=== PATIENT | female | born 1945 | race Caucasian/White ===

== ENCOUNTER 2019-09-05 10:59 | Outpatient (CLI) | payer MEDICARE, SELFPAY ==
--- NOTE | 2019-09-05 11:09 | XR_ITS ---
WS: [id number] VIEWS OF THE LEFT HIP TECHNIQUE: 3 views of the left hip CLINICAL INFORMATION: pain FINDINGS: Moderate degenerative arthritis left hip with joint space narrowing. Osteopenia. Hypertrophic changes along the greater trochanter. Normal left pubic rami. No acute fractures. XR/XR hip LT 2-3V wo/w pel* [id number] IMPRESSION: Moderate degenerative arthritis left hip. No acute fractures
== END 2019-09-05 11:00 | disposition home or self-care (01) ==
LOC: RADWPI 11:03
PROVIDERS: Family Provider Family Medicine; PCP Family Medicine; Visit Provider Family Medicine
DX: M16.12 Unilateral primary osteoarthritis, left hip (principal); B37.3 Candidiasis of vulva and vagina; R73.9 Hyperglycemia, unspecified; Z68.25 Body mass index [BMI] 25.0-25.9, adult; F17.211 Nicotine dependence, cigarettes, in remission; Z71.89 Other specified counseling
CPT/HCPCS: 36416; 73502; 82962

== ENCOUNTER 2019-11-02 10:26 | Emergency (ER) | payer MEDICARE, SELFPAY ==
[2019-11-02 10:28] VITALS: BMI 24.4
[2019-11-02 10:33] VITALS: BP 146/104; PULSE 70; RESP 18; TEMP 36.6; O2SAT 99
--- NOTE | 2019-11-02 10:33 | ED_ITS ---
HPI - Fall General: Chief Complaint: Fall Stated Complaint: FALL LEFT RIB PAIN Time Seen by Provider: 11/02/19 10:31 History of Present Illness: HPI Narrative: 74-year-old female presents emergency room she fell in the bathroom mechanical fall lost her balance complaining of left lower rib pain she not strike her head she not lose consciousness she denies any other injury she was ambulatory afterwards she is still splinting her left lower chest wall with her forearm for comfort. She did receive narcotics in route to the ER. Associated symptoms-after fall: Denies abdominal pain or chest pain Review of Systems Const: Denies: fever, chills, body aches, change in appetite, fatigue or malaise ENMT: Denies: throat pain, ear pain, nasal discharge or nasal congestion Card: Denies: chest pain, edema, shortness of breath on exertion or shortness of breath when lying down Resp: Denies: shortness of breath, productive cough or non-productive cough GI: Denies: abdominal pain, nausea, vomiting, vomiting blood, coffee grounds in vomit, diarrhea, constipation, bloating, blood in stool or black tarry stool : Denies: flank pain, difficulty urinating, painful urination, urinary frequency or urinary urgency Skin/Breast: Denies: rash or itching PFSH ED PFSH: Medical History Hypertension e Social History Smoking and tobacco status: former smoker Alcohol intake: never Physical Exam Const: COMMON NORMALS: no apparent distress GENERAL APPEARANCE: cooperative and comfortable ORIENTATION/CONSCIOUSNESS: Yes awake, Yes oriented to person, Yes oriented to place and Yes oriented to time HENMT: COMMON NORMALS: normocephalic, head/scalp atraumatic, hearing grossly normal bilaterally, external ears normal, EAC's normal, TM's normal bilaterally, nasal mucous membranes and turbinates normal, moist oral mucous membranes and oropharynx normal HEAD & SCALP: normocephalic and atraumatic NOSE: nasal mucous membranes and turbinates normal EXTERNAL EAR: Yes external ears normal EXTERNAL AUDITORY CANAL: EAC's normal TYMPANIC MEMBRANE: TM's normal bilaterally Eye: COMMON NORMALS: PERRL, EOMs intact bilaterally, conjunctivae normal and no scleral icterus CONJUNCTIVA: Yes conjunctivae normal PUPIL: Yes PERRL Neck/C-Spine: COMMON NORMALS: full ROM, no lymphadenopathy, supple and no JVD Lymph: LYMPHATIC: no lymphadenopathy noted and no lymphedema noted Chest: OTHER: Left lower ribs tender to palpation no subcutaneous air no obvious deformity of the rib externally. Resp: COMMON NORMALS: normal respiratory effort, no retractions, no use of accessory muscles and clear to auscultation bilaterally AUSCULTATION: clear to auscultation bilaterally Cardio: COMMON NORMALS: no JVD, regular rate, regular rhythm and no murmurs RATE: regular rate RHYTHM: regular rhythm GI: COMMON NORMALS: soft to palpation and no hepatosplenomegaly AUSCULTATION: Yes normoactive bowel sounds PALPATION: Yes soft, No tender, No guarding and Yes no hepatosplenomegaly Extremity: COMMON NORMALS: normal to inspection, normal capillary refill, no clubbing, cyanosis or edema, no calf tenderness and no pedal edema Neuro: SENSORIUM/ORIENTATION: Yes oriented to person, Yes oriented to place and Yes oriented to time Skin: COMMON NORMALS: no rashes or lesions noted GENERAL SKIN EXAM: no rashes or lesions noted Course Vital Signs: Vital signs: Vital Signs Temperature 97.8 F 11/02/19 10:33 Pulse Rate 69 11/02/19 14:34 Respiratory Rate 18 11/02/19 14:34 Blood Pressure 175/83 11/02/19 14:34 Pulse Oximetry 99 11/02/19 14:34 MDM - Fall MDM Narrative: Medical decision making narrative: Reviewed findings with patient discussed anticipated recovery. Narcotics as needed can use other Tylenol but discussed making sure the Tylenol dose does not exceed recommendations reviewed with her. Advised of side effects of medications avoid wearing rib belt can splint with a pillow or blanket against the left side of her rib can use ice as needed follow-up if worsens or changes. Lab Data: Labs: Lab Results 11/02/19 11/02/19 Range/Units 11:15 11:15 WBC 5.8 (4.0-10.0) 10^3/ uL RBC 4.47 (4.1-5.3) 10^6/u L Hgb 13.8 (11.5-15.3) g/dL Hct 43.4 (37.0-47.0) % MCV 97.1 (81-99) fL MCH 30.9 (28.0-34.0) pg MCHC 31.8 (30.0-36.0) g/dL RDW 12.4 (12.1-15.1) % Plt Count 234 (130-400) 10^3/c mm MPV 10.0 (7.4-10.4) fL Neut % (Auto) 68.0 % Lymph % (Auto) 23.0 % [place] % (Auto) 6.1 % Eos % (Auto) 2.1 % Baso % (Auto) 0.5 % Neut # (Auto) 3.9 (1.8-7.7) 10^3/u L Lymph # (Auto) 1.3 (0.8-4.8) 10^3/u L [place] # (Auto) 0.4 (0.2-0.9) 10^3/u L Eos # (Auto) 0.1 (0.0-0.8) 10^3/u L Baso # (Auto) 0.0 (0.0-0.1) 10^3/u L Nucleated RBC % (a uto) 0 % Nucleated RBCs # 0.0 /100WBC Sodium 137 (136-145) mmol/L Potassium 4.3 (3.5-5.1) mmol/L Chloride 98 (98-107) mmol/L Carbon Dioxide 30 H (22-29) mmol/L Anion Gap 13.3 (5-19) BUN 14 (8-23) mg/dL Creatinine 0.9 (0.5-0.9) mg/dL Glucose 152 H (65-115) mg/dL Calculated Osmolal ity 283 L (285-295) mOsm/k g Calcium 9.9 (8.5-10.5) mg/dL Discharge Plan Discharge Patient Disposition: Home, Self-Care Clinical Impression: Left rib fracture Condition: Stable Prescriptions: New hydrocodone-acetaminophen 5-325 mg tablet 1 tab PO Q6H PRN (Reason: pain) Qty: 25 RF: 0 Zofran 4 mg tablet 4 mg PO Q6H PRN (Reason: nausea and vomiting) Qty: 10 RF: 0 No Action lisinopril 10 mg tablet 10 mg PO BID RF: 0 gabapentin 300 mg tablet 300 mg PO TID RF: 0 [id number] Tablet 1 tab PO DAILY RF: 0 Zyrtec 10 mg Tablet 10 mg PO DAILY RF: 0 Discharge Orders: Discharge Order (Routine); Ordered 11/02/19 Ordered By: Giovanni Bang Referrals: Andrea Johansen MD [Primary Care Provider] - Discharge Diet: Usual diet Discharge Activity: Increase activity as tolerated Activity Restrictions/Additional Instructions: Follow-up with your primary care doctor in the next 4 to 5 days. Discharge Date/Time: 11/02/19 14:00 Coding Level of Care Code ED Pin Sticker for Wingg Martha
[2019-11-02 10:40] VITALS: O2SAT 79
--- NOTE | 2019-11-02 10:41 | PC.NURSE ---
Pt sleeping and noted to be 79% on room air after 100mcg Fentanyl per EMS. Pt placed on 3LNC oxygen and saturations up to 100%
[2019-11-02 10:43] VITALS: PULSE 66; RESP 14; O2SAT 100
--- NOTE | 2019-11-02 10:58 | XR_ITS ---
WS: [id number] RIBS LEFT WITH CHEST TECHNIQUE: 3 views of the left ribs with PA chest CLINICAL INFORMATION: fall L rib paini COMPARISON: July 20, 2018 FINDINGS: Moderate chronic emphysematous changes. Normal cardiac silhouette. Aortic calcification. No acute pul monary infiltrates. Left rotator cuff anchor. Thoracic curve convex right. Slightly displaced left lower lobe lateral rib fractures involving the 10th and 11th ribs. XR/XR ribs LT mn 3V w CXR1V [id number] IMPRESSION: 1. Slightly displaced left lower lobe lateral rib fractures involving the left 10th and 11th ribs. 2. Lungs are well aerated.
[2019-11-02 11:27] LABS: Basophils % 0.5 %; Eosinophils # 0.1 10^3/uL (0.0-0.8); Eosinophils % 2.1 %; Hematocrit 43.4 % (37.0-47.0); Hemoglobin 13.8 g/dL (11.5-15.3); Lymphocytes # 1.3 10^3/uL (0.8-4.8); Mean Corpuscular HGB Conc 31.8 g/dL (30.0-36.0); Mean Corpuscular Hemoglobin 30.9 pg (28.0-34.0); Mean Corpuscular Volume 97.1 fL (81-99); Monocytes # 0.4 10^3/uL (0.2-0.9); Monocytes % 6.1 %; Neutrophils # 3.9 10^3/uL (1.8-7.7); Nucleated Red Blood Cells % 0 %; Platelet Count 234 10^3/cmm (130-400); Red Blood Count 4.47 10^6/uL (4.1-5.3); Red Cell Distribution Width 12.4 % (12.1-15.1); White Blood Count 5.8 10^3/uL (4.0-10.0)
[2019-11-02 11:44] LABS: Anion Gap 13.3 (5-19); Blood Urea Nitrogen 14 mg/dL (8-23); Calcium 9.9 mg/dL (8.5-10.5); Carbon Dioxide 30 mmol/L (22-29); Chloride 98 mmol/L (98-107); Glucose 152 mg/dL (65-115); Osmolality Calculated 283 mOsm/kg (285-295); Potassium 4.3 mmol/L (3.5-5.1); Sodium 137 mmol/L (136-145)
[2019-11-02] MEDS: ondansetron 2 mg/ML SDV 2 mL 4 MG IVP (12:36)
[2019-11-02 12:38] VITALS: RESP 18; O2SAT 100
[2019-11-02] MEDS: morphine 4 mg/mL SDV 1 mL IVP ×2 (12:38→13:38)
[2019-11-02 13:38] VITALS: RESP 17; O2SAT 98
[2019-11-02 14:34] VITALS: BP 175/83; PULSE 69; RESP 18; O2SAT 99
== END 2019-11-02 14:00 | disposition home or self-care (01) ==
PROVIDERS: Emergency Provider Family Medicine; Family Provider Family Medicine; PCP Family Medicine
DX: S22.32XA Fracture of one rib, left side, initial encounter for closed fracture (principal); R07.81 Pleurodynia; I10 Essential (primary) hypertension; W01.0XXA Fall on same level from slipping, tripping and stumbling without subsequent striking against object, initial encounter; Z87.891 Personal history of nicotine dependence
CPT/HCPCS: 12345; 36415; 71101; 80048; 85025; 96374; 96375; 96376; 99282; 99283; J2270; J2405

== ENCOUNTER → 2020-08-25 15:37 | Outpatient (BNVA) | payer MEDICARE, SELFPAY | PROVIDERS: Family Provider Family Medicine; PCP Family Medicine; Referring Provider Dermatology; Visit Provider Podiatrist Foot & Ankle Surgery | DX: M79.671 Pain in right foot (principal) | CPT/HCPCS: 73630 ==

== ENCOUNTER → 2021-03-11 12:07 | Outpatient (BNVA) | payer MEDICARE, SELFPAY | PROVIDERS: Family Provider Family Medicine; PCP Family Medicine; Visit Provider Family Medicine | DX: G62.9 Polyneuropathy, unspecified (principal); M54.5 Low back pain; K58.1 Irritable bowel syndrome with constipation | CPT/HCPCS: 81000 ==

== ENCOUNTER → 2021-04-02 09:16 | Outpatient (BNVA) | payer MEDICARE, SELFPAY | PROVIDERS: Family Provider Family Medicine; PCP Family Medicine; Visit Provider Family Medicine | DX: R09.1 Pleurisy (principal); R06.02 Shortness of breath; I70.0 Atherosclerosis of aorta | CPT/HCPCS: 71046 ==

== ENCOUNTER → 2021-12-15 11:25 | Outpatient (BNVA) | payer MEDICARE, SELFPAY | PROVIDERS: Family Provider Family Medicine; PCP Family Medicine; Visit Provider Family Medicine | DX: J30.9 Allergic rhinitis, unspecified (principal); I10 Essential (primary) hypertension; E78.00 Pure hypercholesterolemia, unspecified | CPT/HCPCS: 80053; 80061; 85025 ==

== ENCOUNTER 2022-11-15 09:50 | Outpatient (CLI) | payer MEDICARE, SELFPAY ==
--- NOTE | 2022-11-15 10:21 | XR_ITS ---
WS: [id number] Exam: XR hand RT min 3V* [id number] Date/Time of Exam: 11/15/2022 10:32 AM Reason For Exam: pain across MCP's and PIP joints No acute fracture or dislocation. Moderate degenerative changes in the MP and IP joints. Degenerative change at the articulation of the scaphoid and greater and lesser multangular. No soft tissue foreig n bodies are seen. XR/XR hand RT min 3V* [id number] IMPRESSION: 1. Moderately advanced degenerative changes in the MP and IP joints as noted ab ove. 2. No fracture or dislocation.
== END 2022-11-15 09:51 | disposition home or self-care (01) ==
LOC: RAD 09:58
PROVIDERS: PCP Family Medicine; Visit Provider Family Medicine
DX: M19.049 Primary osteoarthritis, unspecified hand (principal)
CPT/HCPCS: 73130

== ENCOUNTER → 2023-03-01 17:38 | Outpatient (BNVA) | payer MEDICARE, SELFPAY | PROVIDERS: PCP Family Medicine; Visit Provider Emergency Medicine | DX: J01.90 Acute sinusitis, unspecified (principal); U07.1 COVID-19 | CPT/HCPCS: 87426 ==

== ENCOUNTER → 2023-03-07 14:30 | Outpatient (BNVA) | payer MEDICARE, SELFPAY | PROVIDERS: PCP Family Medicine; Visit Provider Family Medicine | DX: Z86.018 Personal history of other benign neoplasm (principal); Z98.890 Other specified postprocedural states; H91.91 Unspecified hearing loss, right ear; Z01.818 Encounter for other preprocedural examination; G62.9 Polyneuropathy, unspecified | CPT/HCPCS: 87426 ==

== ENCOUNTER 2023-05-05 12:48 | Outpatient (CLI) | payer MEDICARE, SELFPAY ==
--- NOTE | 2023-05-05 13:00 | MR_ITS ---
WS: [id number] MRI HEAD WITH CONTRAST TECHNIQUE: Sagittal T1, T2 axial, T2 axial FLAIR, axial susceptibility weighted imaging, axial diffus ion weighted images, and coronal T2 images were obtained. Pre and post-T1 axial and post T1 coronal i mages. ADC and FSPGR images. CLINICAL INFORMATION: progressive symptoms in recent months/surveil schwannoma COMPARISON: CT 2018 and MRI 2013 FINDINGS: RIGHT retromastoid craniotomy with history of RIGHT acoustic schwannoma resection. Postoper ative changes RIGHT cerebellopontine angle and RIGHT RIGHT IAC. No evidence of recurrent RIGHT IAC ma ss. Normal postoperative enhancement RIGHT IAC. LEFT 7th and 8th cranial nerves are normal in appeara nce. Normal trigeminal nerve root entry zones. No evidence of restricted diffusion to suggest acute ischemia. Ventricular system and basilar cistern s are patent. Minimal small vessel changes. No significant parenchymal volume loss. Mild mucosal thic kening in the ethmoid air cells. Mastoid air cells are well aerated. Normal vascular flow voids at th e skull base. IMPRESSION: 1. Postoperative changes RIGHT CP angle with a RIGHT retromastoid craniotomy. No evidence of recurre nt enhancing RIGHT CP angle mass or lesion. 2. Stable postoperative changes RIGHT CP angle. 3. LEFT IAC is normal. 4. No restricted diffusion to suggest acute ischemia. 5. Minimal small vessel changes. No significant parenchymal volume loss. 6. No other suspicious findings.
[2023-05-05] MEDS: gadobenate dimeglumine 20 mL vial IV (14:11)
== END 2023-05-05 12:49 | disposition home or self-care (01) ==
LOC: RAD 12:48
PROVIDERS: PCP Family Medicine; Visit Provider Family Medicine
DX: Z86.018 Personal history of other benign neoplasm (principal); H91.91 Unspecified hearing loss, right ear; Z98.890 Other specified postprocedural states
CPT/HCPCS: 70553; A9577

== ENCOUNTER → 2023-05-26 10:54 | Outpatient (BNVA) | payer MEDICARE, SELFPAY | PROVIDERS: PCP Family Medicine; Visit Provider Nurse Practitioner Family | DX: L57.0 Actinic keratosis (principal); L72.0 Epidermal cyst; D48.5 Neoplasm of uncertain behavior of skin; L57.8 Other skin changes due to chronic exposure to nonionizing radiation; L81.4 Other melanin hyperpigmentation | CPT/HCPCS: 11102; 17000; 99213 ==

== ENCOUNTER → 2023-06-21 10:11 | Outpatient (BNVA) | payer MEDICARE, SELFPAY | PROVIDERS: PCP Family Medicine; Visit Provider Family Medicine | DX: I10 Essential (primary) hypertension (principal); J30.89 Other allergic rhinitis; Z79.899 Other long term (current) drug therapy | CPT/HCPCS: 80053; 85025 ==

== ENCOUNTER → 2023-06-27 08:21 | Outpatient (BNVA) | payer MEDICARE, SELFPAY | PROVIDERS: PCP Family Medicine; Visit Provider Dermatology | DX: C44.529 Squamous cell carcinoma of skin of other part of trunk (principal) | CPT/HCPCS: 13101; 17313 ==

== ENCOUNTER 2024-12-22 14:38 | Emergency (ER) | payer MEDICARE, SELFPAY ==
[2024-12-22 14:41] VITALS: BP 161/95; PULSE 73; RESP 20; TEMP 36.5; O2SAT 97
[2024-12-22 14:58] LABS: Bilirubin Urine Negative (Negative); Blood Urine Negative (Negative); Glucose Urine UA Negative (Normal); Ketones Urine Negative (Negative); Leukocyte Esterase Urine 1+ (Negative); Nitrate Urine Negative (Negative); Protein Urine Negative (Negative); Specific Gravity, Urine 1.011 (1.005-1.030); Urine Appearance Clear (CLEAR); Urine Color Yellow (Yellow); pH Urine 7.5 (5-7)
[2024-12-22 15:03] LABS: Bacteria Urine None Seen /hpf; Hyaline Casts Urine 0-4 /lpf; RBC Urine 0-2 /hpf (0-2); Squamous Epithelial Cell Urine 0-5 /hpf (0-5); WBC Urine 0-5 /hpf (0-5)
[2024-12-22 16:16] VITALS: BP 161/79; PULSE 62; O2SAT 99
[2024-12-22 16:22] LABS: Basophils % 0.4 %; Eosinophils # 0.2 10^3/uL (0.0-0.8); Eosinophils % 4.1 %; Lymphocytes # 1.7 10^3/uL (0.8-4.8); Lymphocytes % 32.3 %; Mean Corpuscular HGB Conc 31.9 g/dL (30-55); Mean Corpuscular Hemoglobin 31.1 pg (27-33); Mean Corpuscular Volume 97.7 fl (85-98); Mean Platelet Volume 9.8 fL (7.4-10.4); Monocytes # 0.4 10^3/uL (0.2-0.9); Monocytes % 7.5 %; Neutrophils # 2.95 10^3/uL (1.8-7.7); Neutrophils % 55.5 %; Nucleated Red Blood Cells % 0 %; Platelet Count 222 10^3/cmm (157-399); Red Cell Distribution Width 11.9 % (12.1-15.1); White Blood Count 5.32 10^3/uL (3.29-11.43)
[2024-12-22 16:44] LABS: Alanine Aminotransferase 18 U/L (0-33); Albumin Level 3.9 g/dL (3.5-5.2); Alkaline Phosphatase 53 U/L (35-105); Anion Gap 13.3 (5-19); Aspartate Amino Transferase 25 U/L (0-32); Blood Urea Nitrogen 17 mg/dL (8-23); Calcium 9.4 mg/dL (8.5-10.5); Carbon Dioxide 29 mmol/L (22-29); Chloride 100 mmol/L (98-107); Creatinine Clr Calc Pharmacy 53.2684; Globulin 3.1 g/dL (1.3-4.6); Glucose 88 mg/dL (65-115); Lipase 30 U/L (13-60); Osmolality Calculated 287 mOsm/kg (285-295); Potassium 4.3 mmol/L (3.5-5.1); Sodium 138 mmol/L (136-145); Total Bilirubin 0.3 mg/dL (0.15-1.2)
--- NOTE | 2024-12-22 16:57 | CTR_ITS ---
PROCEDURE INFORMATION: Exam: CT Abdomen And Pelvis With Contrast Exam date and time: 12/22/2024 5:18 PM Age: 79 years old Clinical indication: Abdominal pain; Prior surgery; Surgery date: 6+ months; Surgery type: Hysto; PT reports right side flank pain for about a week. Denies any urinary symptoms or blood in urine. Denies HX of kidney stones TECHNIQUE: Imaging protocol: Computed tomography of the abdomen and pelvis with contrast. Radiation optimization: All CT scans at this facility use at least one of these dose optimization techniques: automated exposure control; mA and/or kV adjustment per patient size (includes targeted exams where dose is matched to clinical indication); or iterative reconstruction. Contrast material: OMNI 350; Contrast volume: 100 ml; Contrast route: INTRAVENOUS (IV); COMPARISON: CR XR hip LT 2-3V wo/w pel* [id number] 09/05/2019 11:31 AM RADIATION DOSE METRICS: Total DLP (mGy-cm): 428.14 FINDINGS: Lungs: Small noncalcified nodule is seen right lung base at the right diaphragm of 8 mm. No infiltrate or effusion is seen. Liver: Normal. No mass. Gallbladder and biliary ducts: Normal. No calcified stones. No ductal dilation. Pancreas: Normal. No ductal dilation. Spleen: Normal. No splenomegaly. Adrenal glands: Normal. No mass. Kidneys and ureters: Mild parapelvic cyst formation suggested both kidneys, with inability to exclude mild hydronephrosis of both kidneys. No ureteral dilatation or ureterectasis is seen. No renal or ureteral calculus identified. Kidneys are otherwise unremarkable. No perinephric stranding. Stomach and bowel: Unremarkable. No obstruction. No significant mucosal thickening. Mild sigmoid colon diverticulosis without findings of diverticulitis. Moderate stool volume. Appendix: No evidence of appendicitis. Intraperitoneal space: No free fluid or ascites. No free air. Vasculature: [id number] atherosclerotic calcification without abdominal aortic aneurysm. Major vascular structures appear patent. Pelvic phleboliths noted. Lymph nodes: Unremarkable. No enlarged lymph nodes. Urinary bladder: Unremarkable as visualized. Reproductive: Previous hysterectomy. Bones/joints: Postsurgical change with hardware of prior posterior fusion L4-L5 level. Degenerative changes otherwise. Soft tissues: Unremarkable. CT/CT abdomen pelvis w con* [id number] IMPRESSION: 1. Fullness of the collecting structures of both kidneys, with suggestion of predominant component of mild parapelvic cyst formation bilaterally though with inability to exclude mild bilateral hydronephrosis as well. No associated ureterectasis or urinary tract stone. 2. Mild sigmoid colon diverticulosis without diverticulitis. Moderate stool volume. 3. Postsurgical changes of previous hysterectomy and posterior fusion L4-L5 lumbar spine. 4. Small 8 mm noncalcified nodule right lung base at the diaphragm and may arise from the diaphragm. For patients at low risk (minimal or absent history of smoking and of other known risk factors), recommend CT Chest at 6-12 months, then consider CT Chest at 18-24 months. For patients at high risk (history of smoking or of other known risk factors), recommend CT Chest at 6-12 months, then CT Chest at 18-24 months. (Reference: Stephen) References: Stephen Ordoñez, et al. Guidelines for Management of Incidental Pulmonary Nodules Detected on CT Images: From the Fleischner Society 2017. Radiology. 2017;284(1):228-243.
[2024-12-22] MEDS: iohexol 350 mg/mL 500 mL Btl (per mL) IV (17:22)
[2024-12-22 18:43] VITALS: BP 170/83; PULSE 67; O2SAT 100
[2024-12-22 19:24] VITALS: BP 168/93; PULSE 65; RESP 15; O2SAT 98
--- NOTE | 2024-12-22 19:38 | W.ED.ABDPA2 ---
HPI - Abdominal Pain General: Chief Complaint: Abdominal Pain Stated Complaint: back kidney area pain Time Seen by Provider: 12/22/24 15:46 History of Present Illness: 79-year-old female patient presents to the emergency department today with right sided flank pain. Patient states that started today. Patient states it feels like a kidney stone but patient states she has not had a kidney stone. Patient denies any fever. Patient denies any abdominal pain. Patient denies any chest pain or shortness of breath. Patient denies any other urinary symptoms. Related Data Home Medications ?Medication ?Instructions ?Recorded ?Confirmed fcmhsiwlepoe-fcfunynj-cbpfsk tablet 1 tab PO DAILY 09/05/19 08/02/24 Previous Rx's ?Medication ?Instructions ?Recorded cetirizine 10 mg capsule (Zyrtec) 10 mg PO DAILY PRN allergy 11/07/23 symptoms #90 caps lisinopril 20 1 tab PO DAILY 90 days #90 tabs 06/25/24 mg-hydrochlorothiazide 12.5 mg tablet azithromycin 250 mg tablet See Rx Instructions PO .COMPLEX #6 08/02/24 tabs pseudoephedrine HCl 60 mg tablet 60 mg PO Q6H PRN nasal congestion 08/02/24 #20 tabs gabapentin 300 mg capsule See Rx Instructions .Route 12/19/24 .COMPLEX #270 caps Allergies Allergy/AdvReac Type Severity Reaction Status Date / Time promethazine Allergy Mild ADR-Headach Verified 08/02/24 09:01 e adhesive Allergy ALGY-Rash Verified 08/02/24 09:01 clarithromycin (From Biaxin) Allergy na Verified 08/02/24 09:01 doxycycline Allergy Unknown Verified 12/22/24 14:47 losartan Allergy itching Verified 08/02/24 09:01 metoclopramide (From Reglan) Allergy na Verified 08/02/24 09:01 metoprolol Allergy nausea Verified 08/02/24 09:01 naproxen Allergy NAUSEA Verified 08/02/24 09:01 oxycodone Allergy itching Verified 08/02/24 09:01 and vomiting prednisolone Allergy Unknown Verified 12/22/24 14:48 triamcinolone Allergy ALGY-Bliste Verified 08/02/24 09:01 r walnut Allergy Unknown Verified 12/22/24 14:47 Review of Systems General: Reports: 10 or more systems reviewed and unremarkable except in HPI and below PFSH ED PFSH: Medical History Irritable colon syndrome Hypercholesteremia GERD (gastroesophageal reflux disease) Brain cancer Multiple fractures of ribs of left side Hypertension e Surgical History History of total hysterectomy History of back surgery History of brain surgery Social History Smoking and tobacco/nicotine status: never used tobacco/nicotine Alcohol intake: never Substance/Drug Use: never Physical Exam Const: COMMON NORMALS: no acute distress GENERAL APPEARANCE: cooperative NUTRITIONAL APPEARANCE: overweight HENMT: COMMON NORMALS: Normal external nose present FACE & SINUS: sinus tenderness NOSE: Normal external nose present Resp: EFFORT & INSPECTION: No respiratory distress AUSCULTATION: diminished lung sounds Cardio: COMMON NORMALS: regular rate and regular rhythm RATE: regular rate RHYTHM: regular rhythm GI: COMMON NORMALS: Normal to inspection, nondistended, normoactive bowel sounds present, Soft to palpation and non-tender PALPATION: Yes Soft to palpation : COMMON NORMALS: Yes no CVA tenderness BLADDER/KIDNEY EXAM: Yes no CVA tenderness Back/Pelvis: COMMON NORMALS: no CVA tenderness, thoracic and lumbar spine normal to inspection, no thoracic nor lumbar tenderness and thoraco-lumbar ROM normal Psych: ATTITUDE: Yes calm and Yes engaged ACTIVITY/MOTOR BEHAVIOR: Yes appropriate eye contact INSIGHT: Good insight present (Psych) JUDGEMENT: Good judgement present (Psych) Course Vital Signs: Vital signs: Vital Signs Temperature 97.7 F 12/22/24 14:41 Pulse Rate 65 12/22/24 19:24 Respiratory Rate 15 12/22/24 19:24 Blood Pressure 168/93 12/22/24 19:24 Pulse Oximetry 98 12/22/24 19:24 Oxygen Delivery Me thod Room Air 12/22/24 14:41 MDM - Abdominal Pain Medical Decision Making Patient is well-appearing nontoxic and in no acute distress. Patient did not want anything for pain. Patient's vital signs are stable. Patient does not have any evidence of hypoxemia. 79-year-old female patient presents to the emergency department today with right sided flank pain. Patient states that started today. Patient states it feels like a kidney stone but patient states she has not had a kidney stone. Patient denies any fever. Patient denies any abdominal pain. Patient denies any chest pain or shortness of breath. Patient denies any other urinary symptoms. There are no acute concerning findings on CT however given the mild parapelvic cyst formation I will have patient follow-up with her primary care physician as well as the noncalcified nodule in the right lung base recommending CT chest at 6 to 12 months patient states she already has follow-up scheduled her primary care physician on Tuesday. Patient was advised of home care instructions as well as return precautions. Patient's urine was without evidence of infection labs are otherwise nonconcerning. Patient will continue to see her physician as discussed on Tuesday return precautions advised. I did discuss this case with Dr. Crandall. Lab Data 12/22/24 16:09 12/22/24 16:09 Labs/Radiology: Radiology Impressions Abdomen/Pelvis CT 12/22/24 16:57 IMPRESSION: 1. Fullness of the collecting structures of both kidneys, with suggestion of predominant component of mild parapelvic cyst formation bilaterally though with inability to exclude mild bilateral hydronephrosis as well. No associated ureterectasis or urinary tract stone. 2. Mild sigmoid colon diverticulosis without diverticulitis. Moderate stool volume. 3. Postsurgical changes of previous hysterectomy and posterior fusion L4-L5 lumbar spine. 4. Small 8 mm noncalcified nodule right lung base at the diaphragm and may arise from the diaphragm. For patients at low risk (minimal or absent history of smoking and of other known risk factors), recommend CT Chest at 6-12 months, then consider CT Chest at 18-24 months. For patients at high risk (history of smoking or of other known risk factors), recommend CT Chest at 6-12 months, then CT Chest at 18-24 months. (Reference: Stephen) References: Stephen Ordoñez, et al. Guidelines for Management of Incidental Pulmonary Nodules Detected on CT Images: From the Fleischner Society 2017. Radiology. 2017;284(1):228-243. Laboratory Results WBC 5.32 10^3/uL (3.29-11.43) 12/22/24 16:09 RBC 4.40 10^6/uL (3.85-5.65) 12/22/24 16:09 Hgb 13.70 g/dL (11.27-16.99) 12/22/24 16:09 Hct 43.0 % (36-47) 12/22/24 16:09 MCV 97.7 fl (85-98) 12/22/24 16:09 MCH 31.1 pg (27-33) 12/22/24 16:09 MCHC 31.9 g/dL (30-55) 12/22/24 16:09 RDW 11.9 % (12.1-15.1) L 12/22/24 16:09 Plt Count 222 10^3/cmm (157-399) 12/22/24 16:09 MPV 9.8 fL (7.4-10.4) 12/22/24 16:09 Neut % (Auto) 55.5 % 12/22/24 16:09 Lymph % (Auto) 32.3 % 12/22/24 16:09 [place] % (Auto) 7.5 % 12/22/24 16:09 Eos % (Auto) 4.1 % 12/22/24 16:09 Baso % (Auto) 0.4 % 12/22/24 16:09 Neut # (Auto) 2.95 10^3/uL (1.8-7.7) 12/22/24 16:09 Lymph # (Auto) 1.7 10^3/uL (0.8-4.8) 12/22/24 16:09 [place] # (Auto) 0.4 10^3/uL (0.2-0.9) 12/22/24 16:09 Eos # (Auto) 0.2 10^3/uL (0.0-0.8) 12/22/24 16:09 Baso # (Auto) 0.0 10^3/uL (0.0-0.1) 12/22/24 16:09 Nucleated RBC % (auto) 0 % 12/22/24 16:09 Nucleated RBCs # 0.0 /100WBC 12/22/24 16:09 Sodium 138 mmol/L (136-145) 12/22/24 16:09 Potassium 4.3 mmol/L (3.5-5.1) 12/22/24 16:09 Chloride 100 mmol/L (98-107) 12/22/24 16:09 Carbon Dioxide 29 mmol/L (22-29) 12/22/24 16:09 Anion Gap 13.3 (5-19) 12/22/24 16:09 BUN 17 mg/dL (8-23) 12/22/24 16:09 Creatinine 0.7 mg/dL (0.5-0.9) 12/22/24 16:09 GFR Calculation Not Reportable 12/22/24 16:09 Glucose 88 mg/dL (65-115) 12/22/24 16:09 Calculated Osmolality 287 mOsm/kg (285-295) 12/22/24 16:09 Calcium 9.4 mg/dL (8.5-10.5) 12/22/24 16:09 Total Bilirubin 0.3 mg/dL (0.15-1.2) 12/22/24 16:09 AST 25 U/L (0-32) 12/22/24 16:09 ALT 18 U/L (0-33) 12/22/24 16:09 Alkaline Phosphatase 53 U/L (35-105) 12/22/24 16:09 Total Protein 7.0 g/dL (6.6-8.7) 12/22/24 16:09 Albumin 3.9 g/dL (3.5-5.2) 12/22/24 16:09 Globulin 3.1 g/dL (1.3-4.6) 12/22/24 16:09 Lipase 30 U/L (13-60) 12/22/24 16:09 Urine Color Yellow (Yellow) 12/22/24 14:50 Urine Appearance Clear (CLEAR) 12/22/24 14:50 Urine pH 7.5 (5-7) 12/22/24 14:50 Ur Specific [place] 1.011 (1.005-1.030) 12/22/24 14:50 Urine Protein Negative (Negative) 12/22/24 14:50 Urine Glucose (UA) Negative (Normal) 12/22/24 14:50 Urine Ketones Negative (Negative) 12/22/24 14:50 Urine Blood Negative (Negative) 12/22/24 14:50 Urine Nitrate Negative (Negative) 12/22/24 14:50 Urine Bilirubin Negative (Negative) 12/22/24 14:50 Urine Urobilinogen 1.0 mg/dL (Negative) 12/22/24 14:50 Ur Leukocyte Esterase 1+ (Negative) A 12/22/24 14:50 Urine RBC 0-2 /hpf (0-2) 12/22/24 14:50 Urine WBC 0-5 /hpf (0-5) 12/22/24 14:50 Ur Squamous Epith Cells 0-5 /hpf (0-5) 12/22/24 14:50 Amorphous Sediment Not Reportable 12/22/24 14:50 Urine Bacteria None seen /hpf (NONE) 12/22/24 14:50 Hyaline Casts 0-4 /lpf H 12/22/24 14:50 All radiology interpretation(s) finalized by discharge Discharge Plan Discharge Patient Disposition: Home Clinical Impression: Acute flank pain Condition: Stable Prescriptions: No Action [id number]-jpvolfmc-yhuklu Tablet 1 tab PO DAILY Zyrtec 10 mg capsule 10 mg PO DAILY PRN (Reason: allergy symptoms) Qty: 90 1RF azithromycin 250 mg tablet See Rx Instructions PO .COMPLEX Qty: 6 0RF Rx Instructions: For 250 mg dose pack: take 500 mg today (day 1), then 250 mg for 4 days (days 2-5) PO pseudoephedrine HCl 60 mg tablet 60 mg PO Q6H PRN (Reason: nasal congestion) Qty: 20 0RF lisinopril-hydrochlorothiazide 20-12.5 mg tablet 1 tab PO DAILY 90 Days Qty: 90 3RF gabapentin 300 mg capsule See Rx Instructions .ROUTE .COMPLEX Qty: 270 1RF Dose Instruction: TAKE 1 CAPSULE BY MOUTH THREE TIMES DAILY Rx Instructions: TAKE 1 CAPSULE BY MOUTH THREE TIMES DAILY Discharge Orders: Discharge ED (Routine); Ordered 12/22/24 Ordered By: Milagros Bhakta Referrals: Andrea Johansen MD [Primary Care Provider, [facility]] - 12/24/24 Discharge Diet: Advance as tolerated Discharge Activity: Resume usual activity Patient Instructions: Flank Pain (ED), Opioid Safety, Pain Management Activity Restrictions/Additional Instructions: Please keep your follow up as scheduled on tuesday. Ct chest in 6 months Return to ER with any worsening if symptoms or concerns Print Language: Lao Coding Level of Care Code ED Radio Division Officer for Yousuf Thomas
== END 2024-12-22 19:54 | disposition home or self-care (01) ==
PROVIDERS: Emergency Medicine; Emergency Provider Registered Nurse; PCP Family Medicine
DX: R10.9 Unspecified abdominal pain (principal); I10 Essential (primary) hypertension; Z85.841 Personal history of malignant neoplasm of brain
CPT/HCPCS: 36415; 74177; 80053; 81001; 83690; 85025; 99285

== ENCOUNTER → 2025-01-10 09:40 | Outpatient (BNVA) | payer MEDICARE, SELFPAY | PROVIDERS: PCP Family Medicine; Visit Provider Podiatrist Foot & Ankle Surgery | DX: M72.2 Plantar fascial fibromatosis (principal); M77.32 Calcaneal spur, left foot | CPT/HCPCS: 73630; 99203 ==

== ENCOUNTER → 2025-02-13 09:33 | Outpatient (BNVA) | payer MEDICARE, SELFPAY | PROVIDERS: PCP Family Medicine; Visit Provider Podiatrist Foot & Ankle Surgery | DX: M72.2 Plantar fascial fibromatosis (principal) | CPT/HCPCS: 99213 ==

== ENCOUNTER → 2025-04-02 11:13 | Outpatient (BNVA) | payer MEDICARE, SELFPAY | PROVIDERS: PCP Family Medicine; Visit Provider Podiatrist Foot & Ankle Surgery | DX: M72.2 Plantar fascial fibromatosis (principal); M77.32 Calcaneal spur, left foot | CPT/HCPCS: 20550; J9999 ==

== ENCOUNTER → 2025-05-02 07:35 | Outpatient (BNVA) | payer MEDICARE, SELFPAY | PROVIDERS: PCP Family Medicine; Visit Provider Podiatrist Foot & Ankle Surgery | DX: M72.2 Plantar fascial fibromatosis (principal) | CPT/HCPCS: 99214 ==

== ENCOUNTER 2025-05-29 09:36 | Outpatient (RCR) | payer MEDICARE, SELFPAY | END 2025-06-23 23:59 | disposition home or self-care (01) | LOC: SPT 09:36 | PROVIDERS: Visit Provider Podiatrist Foot & Ankle Surgery | DX: M72.2 Plantar fascial fibromatosis (principal) | CPT/HCPCS: 97035; 97140; 97161; 97530 ==

== ENCOUNTER 2025-06-24 06:30 | Outpatient (RCR) | payer MEDICARE, SELFPAY | END 2025-06-26 11:02 | disposition home or self-care (01) | LOC: SPT 06:30 | PROVIDERS: Visit Provider Podiatrist Foot & Ankle Surgery | DX: M72.2 Plantar fascial fibromatosis (principal) | CPT/HCPCS: 97035; 97140 ==

== ENCOUNTER → 2025-06-27 08:59 | Outpatient (BNVA) | payer MEDICARE, SELFPAY | PROVIDERS: Visit Provider Podiatrist Foot & Ankle Surgery | DX: M72.2 Plantar fascial fibromatosis (principal) | CPT/HCPCS: 99213 ==

== ENCOUNTER 2025-06-28 18:17 | Emergency (ER) | payer MEDICARE, SELFPAY ==
--- OUTSIDE RECORDS SUMMARY | 2025-06-28 18:24 | XMS_ITS | Continuity of Care Document ---
Author Organization [facility] Belinda, Selene, [facility] ([facility]) Address [address] [place] [address] Care Team Providers Care Accounting Machine Servicer Name Role Phone MORENA BYERS Primary Care Provider [facility] NEUROLOGY Neurologist [phone] Assessment No assessment recorded. Plan of Treatment Reminders Order Date Submit Date Provider Last Modified By Organization Details Last Modified Time Details Appointments None record ed. Lab None record ed. Referral None record ed. Procedures None record ed. Surgeries None record ed. Imaging None record ed. Medication Orders None record ed. Patient TargetsNo targets recorded. Patient InstructionsNo instructions recorded. Reason for Referral None Reported. Problems Name Problem SNOMED Code Status Onset Date Resolution Date Notes Provider Name and Address Organization Details Recorded Time Iron deficiency anemia 61650005 Active [address] [facility] Dementia 72400451 Active [address] [facility] 13:[facility]14 Instabilit y of joint of right knee 4151676639878 102 Active [address] [facility] 13:38:13 Arthritis of spine 438230446 Active [address] [facility] 13:38[facility]14 Knee joint valgus deformity 240456355 Active 2022 Janeth nevarez, [facility] 5 13:38:14 Recurrent labyrinthi tis 769072406 Active 2022 Janeth nevarez, [facility] 5 13:38:13 Moderate recurrent major depression 60237817 Active 2022 Janeth nevarez, [facility] 5 13:38:13 Rupture of medial collateral ligament of knee 586620638 Active 2022 Janeth Solomone [facility] 5 13:38:14 Pain of right knee joint 4416086202173 00 Active 2022 Janethann Aguilar [facility] 5 13:38:14 Chronic diarrhea 871604544 Active 2022 Janethann Aguilar [facility] 5 13:38:14 Unsteady when walking 41176358 Active 2023 Janethann Aguilar [facility] 5 13:38:13 Abnormal vaginal bleeding 438830702 Active 2023 Janeth Aguilar [facility] 5 13:38:14 Fatigue 61122215 Active [address] [facility], [facility] 5 13:38:14 Acute on chronic systolic heart failure 685782155 Active 2023 Janeth Aguilar [facility] 5 13:38:14 Systolic murmur 19745388 Active [address] [facility] 13:38:14 Dysphagia 86969707 Active 2024 Janeth nevarez, [facility] 13:38:14 Essential tremor 818405447 Active 2024 Morena Byers, [address], [address] [place] [address] , [facility] 12:00:52 Sundowning 670028696 Active 2024 Morenamarisol Byers[address] , [facility] 12:00:53 Acute urinary tract infection 960343608 Active 2024 Morenamarisol Byers[address] , [facility] 11:40:35 Urinary incontinen ce 253753310 Active 2024 Morenamarisol Byers[address] , [facility] 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 18:33:38 Ischemic stroke 621798348 Active 2024 Morena Byers[address] , [facility] 18:33:40 Post-disch arge follow-up 520339542 Active 2024 MALOU nevarez, [facility] 5 13:46:06 Cerebral infarction 424733808 Active 2024 MALOU nevarez, [facility] 5 13:46:06 Parkinsoni sm 33367134 Active 2024 MALOU nevarez, [facility] 5 13:46:07 Atrial flutter 6360116 Active 2024 MALOU nevarez, [facility] 5 13:46:10 Alzheimer' s disease 88220906 Active 2024 MALOU nevarez, [facility] 5 13:46:11 Gastroesop hageal reflux disease without esophagiti s 873921437 Active 2024 MALOU nevarez, [facility] 13:46:13 Problem Notes None recorded. Procedures Surgical History Date Name Laterality Status Provider Name and Address Organization Details Recorded Time 04/13/20 24 Cerumen Removal-Irrigati on completed [address], [address] 04/15/2024 16:22:05 Hysterectomy [address]YLE [address] [facility] 11/13/2023 14:22:09 Imaging Results None recorded. Procedure Notes None recorded. Medical Equipment None Reported. Allergies Allergen ID Allergen Name Allergen Category Reaction Reaction Severity Criticality Documentation Date Start Date Code Code System Note Provider Name and Address Organization Details Recorded Time 87228 haloperid ol medicatio n Not available Not available Not available 06/12/20252024 5093 RxNorm Not Available rayo - External Data Service - prod 08:18:22 Medications Name Sig Start Date Stop Date Status Note LastModified by Organization Details LastModified Time citalopra m 40 mg tablet TAKE 1 TABLET BY MOUTH EVERY DAY FOR mood 04/02 completed Not Available Not Available Not Available morphine concentra te 100 mg/5 mL (20 mg/mL) oral solution ADMINIST ER 0.25-1 ML UNDER THE TONGUE EVERY HOUR NEEDED FOR PAIN OR SHORTNES S OF BREATH active Not Available Not Available No t Available citalopra m 10 mg tablet TAKE 1 TABLET BY MOUTH EVERY DAY 01/27 completed Not Available Not Available Not Available cephalexi n 250 mg capsule take 1 capsule BY MOUTH EVERY DAY FOR UTI 02/27 completed Not Available Not Available Not Available donepezil 10 mg tablet TAKE 1 TABLET BY MOUTH EVERY DAY active Not Available Not Available No t Available ondansetr on HCl 4 mg tablet TAKE 1 TABLET BY MOUTH EVERY 4 HOURS NEEDED active Not Available Not Available No t Available olanzapin e 5 mg tablet TAKE 1 TABLET BY MOUTH AT BEDTIME 02/27 completed Not Available Not Available Not Available cephalexi n 125 mg/5 mL oral suspensio n take 5ml BY MOUTH EVERY DAY discard remainde r AFTER 10 DAYS 01/07 completed Not Available Not Available Not Available metronida zole 500 mg tablet TAKE 1 TABLET BY MOUTH TWICE DAILY 02/27 completed Not Available Not Available Not Available melatonin 3 mg tablet Take 1 tablet(s ) every day by oral route at bedtime. 2024 active Not Available Not Available Not Avai lable ciproflox acin 500 mg tablet TAKE 1 TABLET BY MOUTH EVERY TWELVE HOURS FOR FIVE DAYS 10/05 completed Not Available Not Available Not Available sulfameth oxazole 800 mg-trimet hoprim 160 mg tablet TAKE 1 TABLET BY MOUTH EVERY TWELVE HOURS FOR 5 DAYS 01/07 completed Not Available Not Available Not Available olanzapin e 7.5 mg tablet Take 1 tablet every day by oral route at bedtime. 03/20 completed Not Available Not Available Not Available vancomyci n 125 mg capsule Take 1 capsule 4 times a day by oral route for 10 days, for infectio n. 03/17 completed Not Available Not Available Not Available meloxicam 7.5 mg tablet TAKE 1 TABLET BY MOUTH EVERY DAY active Not Available Not Available No t Available ceftriaxo ne 1 gram solution for injection Take 1 g by injectio n route. 2024 active Not Available Not Available Not Avai lable alprazola m 0.25 mg tablet Take 1 tablet(s ) 3 times a day by oral route as needed. 06/05 completed Not Available Not Available Not Available citalopra m 20 mg tablet TAKE 1 TABLET BY MOUTH EVERY DAY FOR depressi on 04/02 completed Not Available Not Available Not Available ziprasido ne 20 mg capsule TAKE 1 CAPSULE BY MOUTH TWICE DAILY FOR DEMENTIA WITH AGITATIO N active Not Available Not Available No t Available lorazepam 0.5 mg tablet Take 1 tablet twice a day by oral route for 30 days. 2024 active Not Available Not Available Not Avai lable trazodone 100 mg tablet TAKE 1 TABLET BY MOUTH AT BEDTIME active Not Available Not Available No t Available meclizine 25 mg tablet Take 1 tablet 3 times a day by oral route as needed for 30 days. 11/02 completed Not Available Not Available Not Available cephalexi n 500 mg capsule take 1 capsule BY MOUTH EVERY DAY in THE morning FOR uti 10/05 completed Not Available Not Available Not Available nystatin 100,000 unit/gram topical cream APPLY TO THE AFFECTED AREA(S) by topical route TWICE DAILY 02/27 completed Not Available Not Available Not Available lansopraz ole 30 mg capsule,d elayed release TAKE 1 CAPSULE BY MOUTH EVERY DAY FOR STOMACH active Not Available Not Available No t Available carbidopa 10 mg-levodo pa 100 mg tablet take 1/2 tablet BY MOUTH THREE TIMES DAILY 11/02 completed Not Available Not Available Not Available cephalexi n 500 mg tablet Take 1 tablet 3 times a day by oral route in the morning for 7 days, for UTI. 12/06 completed Not Available Not Available Not Available furosemid e 20 mg tablet TAKE 1 TABLET BY MOUTH EVERY DAY FOR weight gain > THREE pounds active Not Available Not Available No t Available levofloxa fabrice 500 mg tablet TAKE 1 TABLET BY MOUTH EVERY DAY 01/27 completed Not Available Not Available Not Available estradiol 0.01% (0.1 mg/gram) vaginal cream insert ONE gram vaginall y twice weekly DIRECTED active Not Available Not Available No t Available carbidopa 25 mg-levodo pa 100 mg tablet TAKE 1 TABLET BY MOUTH EVERY DAY 2024 active Not Available Not Available Not Avai lable atropine 1 % eye drops ADMINIST ER 2-4 DROPS UNDER THE TONGUE EVERY HOUR NEEDED FOR EXCESS SECRETIO NS active Not Available Not Available No t Available cefdinir 300 mg capsule take 1 capsule BY MOUTH TWICE DAILY FOR 5 DAYS active Not Available Not Available No t Available fluticaso ne propionat e 50 mcg/actua tion nasal spray,ari pension instill TWO SPRAYS EVERY DAY by intranas al route active Not Available Not Available No t Available lorazepam 2 mg/mL oral concentra te ADMINIST ER 0.25-1 ML UNDER THE TONGUE EVERY HOUR NEEDED FOR ANXIETY OR RESTLESS NESS active Not Available Not Available No t Available risperido ne 0.5 mg tablet TAKE 1 TABLET BY MOUTH TWICE DAILY active Not Available Not Available No t Available amoxicill in 875 mg-potass ium clavulana te 125 mg tablet TAKE 1 TABLET BY MOUTH EVERY TWELVE HOURS FOR SEVEN DAYS 01/07 completed Not Available Not Available Not Available olanzapin e 5 mg disintegr ating tablet dissolve ONE & ONE-HALF tablets in MOUTH AT BEDTIME 03/20 completed Not Available Not Available Not Available nitrofura ntoin monohydra te/macroc rystals 100 mg capsule take 1 capsule BY MOUTH EVERY TWELVE HOURS FOR 7 DAYS 10/05 completed Not Available Not Available Not Available meclizine TID/PRN for spinning and nausea 11/02 completed Recorded 06/14/20 12:36PM by Maisha Pearson, Office Visit; Refill Quantity : 24; Tablet; Not Available Not Available Not Available lansopraz ole daily 11/02 completed DM/sd; 32063; Recorded 06/14/20 12:36PM by Maisha Pearson (Authori gume through Morena Byers DO), Office Visit; Refill Quantity : 90; Tablet; Not Available Not Available Not Available donepezil daily 11/02 completed 97764; Recorded 06/14/20 12:36PM by Maisha Pearson (Claudine dunaway through HANNAH Boyd, Office Visit; Refill Quantity : 0; Not Available Not Available Not Available multivita min active Not Available Not Available Not Available fluticaso ne propion-s almeterol 11/02 completed 0; Recorded 06/14/20 12:36PM by Maisha Pearson, Office Visit; Not Available Not Available Not Available Calcium 500 + D (D3) active Not Available Not Available Not Available Trimo-Roger Jelly 0.025 %-0.01 % vaginal insert ONE gram vaginall y twice weekly active Not Available Not Available No t Available Gayla Allergy 180 mg tablet Take 1 tablet every day by oral route. active Not Available Not Available No t Available Rexulti 1 mg tablet Take by oral route for 30 days. active Not Available Not Available No t Available Vitals None Recorded Social History Question Answer Notes LastModified by Organizat ion Details LastModified Time Tobacco Smoking Status Never Smoker LYLE nevarez [facility] 11/13/2023 14:21:39 What Was The Date Of Your Most Recent Tobacco Screening? 01/07/2025 outs Information not available 01/07/2025 Sex: Unknown Functional Status Question Answer Note LastModified by Organizat ion Details LastModified Time Do you use any illicit or recreational drugs? No [email or web address] Information not available 01/27/2023 Do you or have you ever used any other forms of tobacco or nicotine? No [email or web address] Information not available 01/27/2023 What is your level of alcohol consumption? None [email or web address] Information not available 01/27/2023 Mental Status None recorded. Family History Nothing Reported. Medical History No medical history recorded. Gynecological HistoryNo gynecological history recorded. Obstetrics History GPAL:G 0 P 0 0 0 0 Immunizations Vaccine Type Date Status Note Provider Nam e and Address Organization Details Recorded Time COVID-19 vaccine, vector-nr, rS-Ad26, PF, 0.5 mL 10/30/[address] [facility] 01/03/2024 15:39:32 Past Encounters Encounter ID Performer Location Encounter Start Date Encounter Closed Date Diagnosis/Indication Diagnosis SNOMED-CT Code Diagnosis ICD10 Code Diagnosis IMO Codes Diagnosis Note [id number] Stefan Harper DO [facility] ([facility]) [address] [place] [address] 05/20/2025 14:21:41 05/22/2025 08:03:07 Alzheimer's disease 76000289 F02.80 G30.9 088976 Atrial flutter 4981717 I 48.92 [id number] [facility] [id number] Stefan Harper DO [facility] ([facility]) [address] [place] [address] 06/13/2025 09:15:12 06/16/2025 14:03:59 Health Concerns Section Related Observation LastModified by Organization Detai ls LastModified Time None Recorded Concern Status LastModified by Organization Details LastModified Time None Recorded Payers Encounter Date Sequence Insurance Name Policy Number Policy Liu Covered Member ID Liu Member ID Guarantor Name 06/13/2025 1 [place] Isabellajoselin Gorman [id number] Isabellajoselin Gorman 06/13/2025 2 [employer] - PLAN F (MEDICARE SUPPLEMENT) Isabella Gorman [id number] Isabella Gorman OBGyn Episode No OBEpisode recorded.
--- OUTSIDE RECORDS SUMMARY | 2025-06-28 18:24 | XMS_ITS | Encounter Summary ---
Author Organization [facility] Address [address] [place] [address] Care Team Providers Care Marketing Assistant Retail Division Name Role Phone Unavailable Primary Care Provider Unavailabl e Encounter Details Date Type Department Care Team (Latest Contact Info) Description 04/05/2003 Outpatient Historical [facility] Neurosurgery- [place] [address] [address] [place] [address] Tate Paul MD [address] [place] [address] CERV SPONDYL W MYELOPATH (Primary Dx) Social History Tobacco Use Types Packs/Day Years Used Date Smoking Tobacco: Never Assessed Comments Unknown Sex and Gender Information Value Date Recorded Sex Assigned at Not on file 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
--- OUTSIDE RECORDS SUMMARY | 2025-06-28 18:24 | XMS_ITS | Continuity of Care Document ---
Author Organization [facility] Lewis Jasso [facility] Selene Trevino, [facility] ([facility]) Address [address] [place] [address] Care Team Providers Care Utility Worker [place] Name Role Phone BYERSMORENA Primary Care Provider [facility] NEUROLOGY Neurologist Assessment No assessment recorded. Plan of Treatment Reminders Order Date Submit Date Provider Last Modified By Organization Details Last Modified Time Details Appointments None record ed. Lab None record ed. Referral None record ed. Procedures None record ed. Surgeries None record ed. Imaging None record ed. Medication Orders None record ed. Patient TargetsNo targets recorded. Patient Instructions Encounter Date Encounter Id Patient Instructions Last Modified By Organization Details Last Modified Time 04/15/2025 [id number] Discussed with daughter medications, history and goals of care. Daughter does report she is more anxious and frequently tearful. Will d/c donepezil, trazodone, lasix and probiotic. Will start zoloft and pepcid. [email or web address] Not available 04/15/2025 15:45:34 Reason for Referral None Reported. Results Created Date Observation Date Name Description Value Unit Range Abnormal Flag Note LastModifiedBy Organization Detail LastModifiedTime 03/20/2003/20/2025 XR, chest , 2 view No observ ation record ed. RAYO [facility] ([facility]) [address] [place], [address], 03/21/2025 07:57:39 03/22/20 25 03/20/2025 XR, chest , 2 view No observ ation record ed. [address] [place], [address], 04/01/2025 18:23:02 Result Notes None recorded. Problems Name Problem SNOMED Code Status Onset Date Resolution Date Notes Provider Name and Address Organization Details Recorded Time Iron deficiency anemia 96058367 Active 2022 Janeth nevarez [facility] 5 13:38:14 Dementia 52218997 Active 2022 Janethann Aguilar [facility] 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 5 13:38:13 Arthritis of spine 226494394 Active 2022 Janeth Aguilar [facility] 5 13:38:14 Knee joint valgus deformity 881737623 Active 2022 Janethann Solomone [facility] 5 13:38:14 Recurrent labyrinthi tis 235251344 Active 2022 Janethann Aguilar [facility] 5 13:38:13 Moderate recurrent major depression 84687642 Active 2022 Janethann Aguilar [facility] 5 13:38:13 Rupture of medial collateral ligament of knee 617485574 Active 2022 Janetheden Solomone [facility] 5 13:38:14 Pain of right knee joint 3556918212633 00 Active 2022 Janeth Aguilar [facility] 5 13:38:14 Chronic diarrhea 977720550 Active 2022 Janeth nevarez, [facility] 5 13:38:14 Unsteady when walking 00127554 Active 2023 Janeth Aguilar null, [facility] 5 13:38:13 Abnormal vaginal bleeding 209776974 Active 2023 Janeth nevarez, [facility] 5 13:38:14 Fatigue 54785793 Active 2023 Janeth Solomone null, [facility] 5 13:38:14 Acute on chronic systolic heart failure 566881248 Active 2023 Janeth Aguilar null, [facility] 5 13:38:14 Systolic murmur 33185520 Active 2023 Janeth Solomone null, [facility] 5 13:38:14 Dysphagia 40075846 Active 2024 Janeth Jeff nevarez, [facility] 5 13:38:14 Essential tremor 929854535 Active 2024 Morena Byers DO [address] [place] [address], [address] , [facility] 5 12:00:52 Sundowning 090355004 Active 2024 More[address] By[address], [address] , [facility] 5 12:00:53 Acute urinary tract infection 709901741 Active 2024 Morena Byers DO [address] [place] [address], [address] , [facility] 11:40:35 Urinary incontinen ce 849681408 Active [address], [address] , [facility] 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 18:33:38 Ischemic stroke 508937667 Active [address], [address] , [facility] 18:33:40 Post-disch arge follow-up 436002108 Active 2024 MALOU nevarez, [facility] 13:46:06 Cerebral infarction 497726508 Active 2024 MALOU nevarez, [facility] 13:46:06 Parkinsoni sm 50536572 Active 2024 MALOU nevarez, [facility] 13:46:07 Atrial flutter 2546173 Active 2024 MALOU nevarez, [facility] 5 13:46:10 Alzheimer' s disease 74521694 Active 2024 MALOU nevarez, [facility] 13:46:11 Gastroesop hageal reflux disease without esophagiti s 915898609 Active 2024 MALOU nevarez [facility] 13:46:13 Problem Notes None recorded. Procedures Surgical History Date Name Laterality Status Provider Name and Address Organization Details Recorded Time 04/13/20 24 Cerumen Removal-Irrigati on completed AMALIA GODFREYSKYE [address] [place], [address], [place] [facility], Selene 04/15/2024 16:22:05 Hysterectomy completed LYLE BARRIGA [facility], [place] 11/13/2023 14:22:09 Imaging Results None recorded. Procedure Notes None recorded. Medical Equipment None Reported. Allergies Allergen ID Allergen Name Allergen Category Reaction Reaction Severity Criticality Documentation Date Start Date Code Code System Note Provider Name and Address Organization Details Recorded Time 30411 haloperid ol medicatio n Not available Not [...] Available lansopraz ole daily 11/02 completed DM/sd; 82560; Recorded 06/14/20 12:36PM by Maisha Pearson (Authori zed through Morena Byers DO), Office Visit; Refill Quantity : 90; Tablet; Not Available Not Available Not Available donepezil daily 11/02 completed 44216; Recorded 06/14/20 12:36PM by Maisha Pearson (Authori zed through Morena Byers DO), Office Visit; Refill Quantity : 0; Not [...] Available Not Available No t Available Vitals Date Recorded Body height Heart rate Respiratory rate Body temperature Oxygen saturation Systolic And Diastolic Provider Name and Address Organization Details Last Updated DateTime 5 157.48 cm 66 /min 20 /min 97.8 [degF] 96 % 132/74 mm[Hg] MALOU ROTHMAN [facility] 15:38:41 Social History Question Answer Notes LastModified by Organizat ion Details LastModified Time Tobacco Smoking Status Never Smoker LYLE BARRIGA geri [facility] 11/13/2023 14:21:39 What Was The Date Of Your Most Recent Tobacco Screening? 01/07/2025 [email or web address] Information not available 01/07/2025 Sex: Unknown Functional Status Question Answer Note LastModified by Organizat ion Details LastModified Time Do you use any illicit or recreational drugs? No [email or web address] Information not available 01/27/2023 Do you or have you ever used any other forms of tobacco or nicotine? No [email or web address] Information not available 01/27/2023 What is your level of alcohol consumption? None Information not available 01/27/2023 Mental Status None recorded. Family History Nothing Reported. Medical History No medical history recorded. Gynecological HistoryNo gynecological history recorded. Obstetrics History GPAL:G 0 P 0 0 0 0 Immunizations Vaccine Type Date Status Note Provider Nam e and Address Organization Details Recorded Time COVID-19 vaccine, vector-nr, rS-Ad26, PF, 0.5 mL 10/30/2020 completed Janeth nevarez [facility] 01/03/2024 15:39:32 Past Encounters Encounter ID Performer Location Encounter Start Date Encounter Closed Date Diagnosis/Indication Diagnosis SNOMED-CT Code Diagnosis ICD10 Code Diagnosis IMO Codes Diagnosis Note [id number] Morena Byers DO [facility] ([facility]) [address] [place] [address] 03/20/2025 15:20:51 03/25/2025 13:36:34 Essential tremor 959490207 G25.0 increase carbidopa/ levadopa to BID. counseled Dyspnea 385100918 R06.00 02519521 CXR today. Moderate r ecurrent major depression 30796711 F32.A Continue Citalopram 40mg daily. Dementia 61455844 G30.9 F03.90 stable. continue meds. conitnue with care and supervison at home. 105427953 F05 3717847 continue zyprexa, now every evening. counseled Unsteady when walking 22 869435 R26.89 Continue use of walker and w/c. Difficulty sleeping 3013 65284 G47.9 03/20/25: Counseled stop Olanzapine , start Rexulti. Counseled on diagnosis, treatment options including medication s and possible side effects. Start pack dispensed in clinic this afternoon. Recurrent urinary tract infection 225772095 N39.0 546029 03/20/25: presumed, similar symptoms when she was + for infection previously , will treat with Rocephin injection. 09/04/24: counseled continue Macrobid until complete, ok to start Cephalexin 500mg each am. Counseled on diagnosis, treatment options including medication s and possible side effects. [id number] Morena Byers DO [facility] ([facility]) [address] [place] [address] 04/01/2025 17:04:22 04/03/2025 09:45:47 Ischemic stroke 197070376 I63.9 136595 presumed with sudden change in mental status and change in mood/behav ior. right side now more week than left. This does not appear to be medication related as she has been off her meds for 3+ days without change.She is unable to bath, cook, clean, and now she needs assistance with feeding. We will work on NH placement Primary de generative dementia of the Alzheimer type, senile onset 839711652 G30.1 F02.C11 8978363023 we will stop zyprexa and star [id number] Stefan Harper DO [facility] ([facility]) [address] [place] [address] 04/11/2025 12:13:48 04/17/2025 08:01:40 Post-discharge follow-up 844160058 Z09 694110 Cerebral infarction 4325 30848 I63.9 37924258 Parkinsonism 02638838 G2 0.C 68440248 Atrial flutter 5226812 I 48.92 90626762 Alzheimer's disease 2692 9004 G30.9 F02.80 486973 Gastroesop hageal reflux disease without esophagitis 169123875 K21.9 6522457 [id number] Stefan Harper DO [facility] ([facility]) [address] [place] [address] 04/15/2025 09:38:45 04/17/2025 11:17:27 Alzheimer's disease 55620757 F02.80 G30.9 279147 Moderate r ecurrent major depression 83853387 F32.A Atrial flutter 7928965 I 48.92 44957854 Essential tremor 1783077 09 G25.0 88462 Health Concerns Section Related Observation LastModified by Organization Detai ls LastModified Time None Recorded Concern Status LastModified by Organization Details LastModified Time None Recorded Payers Encounter Date Sequence Insurance Name Policy Number Policy Liu Covered Member ID Liu Member ID Guarantor Name 04/15/2025 1 [place] Isabella Gorman [id number] Isabella Gorman 04/15/2025 2 [employer] - PLAN F (MEDICARE SUPPLEMENT) Isabella Gorman [id number] Isabella Gorman Notes Date Note Type Note Provider Name and Address Organization Details Recorded Time 04/15/2025 text/html DementiaReported by PatientHPIFor quality, patient reportsshort term memory loss,inability to learn or remember new information,disorienta tion to place, anddisorientation to time. For severity, patient reportsmoderate. For duration, patient reports___ years.ROS as noted in the HPI discuss care and goals with daughter. Stefan Harper DO [address] [place] [address], [address], MICHELLE Jasso [facility] Selene Trevino 04/16/2025 15:36:35 OBGyn Episode No OBEpisode recorded.
--- OUTSIDE RECORDS SUMMARY | 2025-06-28 18:24 | XMS_ITS | Encounter Summary ---
Author Organization [employer] [facility] [facility] Address [address] [place] [address] Care Team Providers Care Ramp Lead Name Role Phone Unavailable Primary Care Provider Unavailabl e Encounter Details Date Type Department Care Team (Latest Contact Info) Description 08/08/2002 Outpatient Historical [facility] Rafita, Macho Ochoa MD [address] [facility] [address] [place] [address] ABDOMINAL PAIN LUQ (Primary Dx) Social History Tobacco Use Types Packs/Day Years Used Date Smoking Tobacco: Never Assessed Comments Unknown Sex and Gender Information Value Date Recorded Sex Assigned at Not on file 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
--- OUTSIDE RECORDS SUMMARY | 2025-06-28 18:25 | XMS_ITS | Encounter Summary ---
Author Organization [employer] [facility] Address [address] [place] [address] Care Team Providers Care Soda Maker Name Role Phone Unavailable Primary Care Provider Unavailabl e Encounter Details Date Type Department Care Team (Latest Contact Info) Description 08/22/2002 Outpatient Historical HIS [facility] Rafita, Macho Ochoa MD [address] [address] SURGERY FOLLOWUP, UNSPEC (Primary Dx) Social History Tobacco Use Types Packs/Day Years Used Date Smoking Tobacco: Never Assessed Comments Unknown Sex and Gender Information Value Date Recorded Sex Assigned at Not on file 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
--- OUTSIDE RECORDS SUMMARY | 2025-06-28 18:25 | XMS_ITS | Continuity of Care Document ---
Author Organization [facility] Belinda, Selnee, [facility] ([facility]) Address [address] [facility] [place] [address] Care Team Providers Care Founder President And Ceo Name Role Phone MORENA BYERS Primary Care Provider [facility] NEUROLOGY Neurologist Assessment No assessment recorded. Plan [...] Modified By Organization Details Last Modified Time 05/02/2025 [id number] Discussed with daughter, agree to stop zoloft and start zyprexa 5mg daily. Not available 05/02/2025 13:37:21 Reason for Referral None Reported. Problems Name Problem SNOMED Code Status Onset Date Resolution Date Notes Provider Name and Address Organization Details Recorded Time Iron deficiency anemia 89735337 Active 2022 [facility] 13:38:14 Dementia 88026481 Active 2022 [facility] 13:38:14 Instabilit y of joint of right knee 3576824275504 102 Active 2022 [facility] 13:38:13 Arthritis of spine 184928561 Active 2022 Janeth nevarez, [facility] 5 13:38:14 Knee joint valgus deformity 828652087 Active 2022 Janeth Aguilar [facility] 5 13:38:14 Recurrent labyrinthi tis 230258414 Active 2022 Janethann Aguilar [facility], [facility] 5 13:38:13 Moderate recurrent major depression 71242187 Active 2022 Janeth Aguilar [facility] 5 13:38:13 Rupture of medial collateral ligament of knee 232427883 Active 2022 Janetheden Solomone [facility] 5 13:38:14 Pain of right knee joint 3837318946379 00 Active 2022 Janethann Aguilar [facility] 5 13:38:14 Chronic diarrhea 492011851 Active 2022 Janetheden Solomone [facility] 5 13:38:14 Unsteady when walking 64658165 Active 2023 Ajnetheden Solomone [facility] 5 13:38:13 Abnormal vaginal bleeding 081562850 Active 2023 Janetheden Solomone [facility] 5 13:38:14 Fatigue 20953509 Active 2023 Janeth Aguilar [facility] 5 13:38:14 Acute on chronic systolic heart failure 695124785 Active 2023 Janeth Aguilar [facility], [facility] 13:38:14 Systolic murmur 77729292 Active 2023 Janeth Aguilar geri, [facility] 13:38:14 Dysphagia 88962518 Active 2024 Janeth nevarez, [facility] 13:38:14 Essential tremor 060006605 Active 2024 Morena Byers, [address], [address] , [facility] 12:00:52 Sundowning 197155699 Active 2024 Morena Byers [address], [address] , [facility] 12:00:53 Acute urinary tract infection 375660360 Active 2024 Morena Byers [address], [address] , [facility] 11:40:35 Urinary incontinen ce 963362336 Active 2024 Morena Byers [address], [address] , [facility] 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 18:33:38 Ischemic stroke 908865374 Active 2024 Morena Byers [address], [address] , [facility] 5 18:33:40 Post-disch arge follow-up 539685232 Active 2024 MALOU nevarez, [facility] 13:46:06 Cerebral infarction 298866681 Active 2024 MALOU nevarez, [facility] 13:46:06 Parkinsoni sm 46842459 Active 2024 MALOU nevarez, [facility] 5 13:46:07 Atrial flutter 0184887 Active 2024 MALOU nevarez, [facility] 13:46:10 Alzheimer' s disease 30260218 Active 2024 MALOU nevarez, [facility] 13:46:11 Gastroesop hageal reflux disease without esophagiti s 158162070 [facility] 13:46:13 Problem Notes None recorded. Procedures Surgical History Date Name Laterality Status Provider Name and Address Organization Details Recorded Time 04/13/20 24 Cerumen Removal-Irrigati on completed MONI AKINS[address], [address], [facility] 04/15/2024 16:22:05 Hysterectomy completed LYLE BARRIGA [facility] 11/13/2023 14:22:09 Imaging Results None recorded. Procedure Notes None recorded. Medical Equipment None Reported. Allergies Allergen ID Allergen Name Allergen Category Reaction Reaction Severity Criticality Documentation Date Start Date Code Code System Note Provider Name and Address Organization Details Recorded Time 00011 haloperid ol medicatio n Not available Not [...] Available lansopraz ole daily 11/02 completed DM/sd; 47471; Recorded 06/14/20 12:36PM by Maisha Pearson (Authori gume through Morena Byers DO), Office Visit; Refill Quantity : 90; Tablet; Not Available Not Available Not Available donepezil daily 11/02 completed 90702; Recorded 06/14/20 12:36PM by Maisha Pearson (Claudine dunaway through Morena Byers DO), Office Visit; Refill [...] and Address Organization Details Last Updated DateTime 157.48 cm 75 /min 18 /min 98.3 [degF] 98 % 134/62 mm[Hg] MALOU ROTHMAN [facility] 13:35:38 Social History Question Answer Notes LastModified by [employer] Details LastModified Time Tobacco Smoking Status Never Smoker [facility] 11/13/2023 14:21:39 What Was The Date Of Your Most Recent Tobacco Screening? 01/07/2025 [email or web address] Information not available 01/07/2025 Sex: Unknown Functional Status Question Answer Note LastModified by [employer] Details LastModified Time Do you use any illicit or recreational drugs? No [email or web address] Information not available 01/27/2023 Do you or have you ever used any other forms of tobacco or nicotine? No [email or web address] Information not available 01/27/2023 What is your level of alcohol consumption? None [email or web address] Information not available 01/27/2023 Mental Status None recorded. Family History Nothing Reported. Medical History No medical history recorded. Gynecological HistoryNo gynecological history recorded. Obstetrics History GPAL:G 0 P 0 0 0 0 Immunizations Vaccine Type Date Status Note Provider Nam e and Address Organization Details Recorded Time COVID-19 vaccine, vector-nr, rS-Ad26, PF, 0.5 mL 10/30/2020 completed Janeth nevarez [facility], Sel[place] 01/03/2024 15:39:32 Past Encounters Encounter ID Performer Location Encounter Start Date Encounter Closed Date Diagnosis/Indication Diagnosis SNOMED-CT Code Diagnosis ICD10 Code Diagnosis IMO Codes Diagnosis Note [id number] Stefan Harper DO [facility] ([facility]) [address] [place] [address] 5 04/11/2025 12:13:48 04/17/2025 08:01:40 Post-discharge follow-up 231939374 Z09 816315 Cerebral infarction 4325 74551 I63.9 25759554 Parkinsonism 37810476 G2 0.C 63237406 Atrial flutter 6917984 I 48.92 27923928 Alzheimer's disease 2692 9004 G30.9 F02.80 412044 Gastroesop hageal reflux disease without esophagitis 209081851 K21.9 5928825 [id number] Stefan Harper DO [facility] ([facility]) [address] [place] [address] 5 04/15/2025 09:38:45 04/17/2025 11:17:27 Alzheimer's disease 00100986 F02.80 G30.9 899570 Moderate r ecurrent major depression 16407167 F32.A Atrial flutter 2169140 I 48.92 11376937 Essential tremor 3872159 09 G25.0 61616 [id number] Stefan Harper DO [facility] ([facility]) [address] [place] [address] 5 04/25/2025 12:51:26 04/30/2025 08:37:42 Alzheimer's disease 44360123 F02.80 G30.9 828562 Atrial flutter 1195959 I 48.92 24594586 Moderate r ecurrent major depression 43064397 F32.A [id number] Stefan Harper DO [facility] ([facility]) [address] [place] [address] 05/02/2025 13:21:29 05/07/2025 12:24:36 Moderate recurrent major depression 73397597 F32.A Alzheimer's disease 2692 9004 F02.80 G30.9 466279 Health Concerns Section Related Observation LastModified by Organization Detai ls LastModified Time None Recorded Concern Status LastModified by Organization Details LastModified Time None Recorded Payers Encounter Date Sequence Insurance Name Policy Number Policy Liu Covered Member ID Liu Member ID Guarantor Name 05/02/2025 1 [place] Isabella Gorman [id number] Isabella Gorman 05/02/2025 2 [employer] - PLAN F (MEDICARE SUPPLEMENT) Isabella Gorman [id number] Isabella Gorman Notes Date Note Type Note Provider Name and Address Organization Details Recorded Time 05/02/2025 text/html DementiaReported by PatientHPIFor quality, patient reportsshort term memory loss,inability to learn or remember new information,disorienta tion to place, anddisorientation to time. For severity, patient reportsmoderate. For duration, patient reports___ years.ROS as noted in the HPI staff reports pt yelling out. Stefan Harper DO [address] [place] [address], [phone], [facility] 05/05/2025 17:26:08 OBGyn Episode No OBEpisode recorded.
--- OUTSIDE RECORDS SUMMARY | 2025-06-28 18:25 | XMS_ITS | Data Portability ---
Author Organization [facility], [facility] Address [address] [place] [address] Care Team Providers Care Dredgemaster Name Role Phone MORENA BYERS Primary Care Provider [facility] NEUROLOGY Neurologist Assessment No assessment recorded. Plan [...] Modified By Organization Details Last Modified Time 04/25/2025 [id number] Encouraged to give zoloft time, scheduled to increase on 04/30. [email or web address] Not available 04/25/2025 13:14:37 05/02/2025 [id number] Discussed with daughter, agree to stop zoloft and start zyprexa 5mg daily. [email or web address] Not available 05/02/2025 13:37:21 05/20/2025 [id number] continues to yel l out with zyprexa. Will increase to 5mg bid. if not improved by next week increase to 10 [email or web address] Not available 05/20/2025 15:22:19 Reason for Referral None Reported. Problems Name Problem SNOMED Code Status Onset Date Resolution Date Notes Provider Name and Address Organization Details Recorded Time Iron deficiency anemia 56459411 Active 2022 Janeth nevarez [facility], [facility] 13:38:14 Dementia 56201012 Active 2022 Janeth nevarez [facility] 5 13:38:14 Instabilit y of joint of right knee 4903428135008 102 [facility] 13:38:13 Arthritis of spine 885034108 Active 2022 Janethann Aguilar [facility] 5 13:38:14 Knee joint valgus deformity 321289107 Active 2022 Janethann Solomone [facility] 5 13:38:14 Recurrent labyrinthi tis 209307112 Active 2022 Janethann Aguilar [facility] 5 13:38:13 Moderate recurrent major depression 68624451 Active 2022 Janethann Aguilar [facility] 5 13:38:13 Rupture of medial collateral ligament of knee 906530736 Active 2022 Janethann Aguilar [facility] 5 13:38:14 Pain of right knee joint 9634028536594 00 Active 2022 Janethann Aguilar [facility] 5 13:38:14 Chronic diarrhea 620245984 Active 2022 Janethann Solomone [facility] 5 13:38:14 Unsteady when walking 72164421 Active 2023 Janethann Solomone [facility] 5 13:38:13 Abnormal vaginal bleeding 506219717 Active 2023 Janetheden Solomone [facility] 5 13:38:14 Fatigue 73498914 Active 2023 Janeth nevarez, [facility] 5 13:38:14 Acute on chronic systolic heart failure 728075461 Active 2023 Janeth nevarez, [facility] 5 13:38:14 Systolic murmur 76131041 Active 2023 Janeth Solomone null, [facility] 5 13:38:14 Dysphagia 93785965 Active 2024 Janeth Aguilar geri, [facility] 5 13:38:14 Essential tremor 161790522 Active 2024 Morena Byers [address] , [facility] 12:00:52 Sundowning 053173580 Active [address], [address] , [facility] 12:00:53 Acute urinary tract infection 948695206 Active 2024 Morena Byers [address] , [facility] 5 11:40:35 Urinary incontinen ce 028985743 Active 2024 [place] [address] , [facility] 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 13:46:06 Cerebral infarction 178688516 Active 2024 MALOU nevarez, [facility] 13:46:06 Parkinsoni sm 85296939 Active 2024 MALOU nevarez, [facility] 13:46:07 Atrial flutter 6983401 Active 2024 MALOU nevarez, [facility] 13:46:10 Alzheimer' s disease 76894803 Active 2024 MALOU nevarez, [facility] 13:46:11 Gastroesop hageal reflux disease without esophagiti s 057069882 Active 2024 MALOU nevarez [facility] 13:46:13 Problem Notes None recorded. Procedures Surgical History Date Name Laterality Status Provider Name and Address Organization Details Recorded Time 04/13/20 24 Cerumen Removal-Irrigati on completed SKYE AKINS [address] [place], [address], [facility], [facility] 04/15/2024 16:22:05 Hysterectomy completed [facility] 11/13/2023 14:22:09 Imaging Results None recorded. Procedure Notes None recorded. Medical Equipment None Reported. Allergies Allergen ID Allergen Name Allergen Category Reaction Reaction Severity Criticality Documentation Date Start Date Code Code System Note Provider Name and Address Organization Details Recorded Time 43330 haloperid ol medicatio n Not available Not [...] spinning and nausea 11/02 completed Recorded 06/14/20 22 12:36PM by Maisha Pearson, Office Visit; Refill Quantity : 24; Tablet; Not Available Not Available Not Available lansopraz ole daily 11/02 completed DM/sd; 57198; Recorded 06/14/20 12:36PM by Maisha Pearson (Authori zed through [employer] , DO), Office Visit; Refill Quantity : 90; Tablet; Not Available Not Available Not Available donepezil daily 11/02 completed 93082; Recorded 06/14/20 12:36PM by Maisha Pearson (Authori zed through [employer] , DO), Office Visit; Refill Quantity : 0; [...] t Available Vitals Date Recorded Body height Provider Name an d Address Organization Details Last Updated DateTime 04/25/2025 157.48 cm [facility] 04/25/2025 13:12:00 Date Recorded Body height Heart rate Respiratory rate Body temperature Oxygen saturation Systolic And Diastolic Provider Name and Address Organization Details Last Updated DateTime 157.48 cm 75 /min 18 /min 98.3 [degF] 98 % 134/62 mm[Hg] [facility] 13:35:38 Date Recorded Body height Body mass index (BMI) Body weight Heart rate Respiratory rate Body temperature Oxygen saturation Systolic And Diastolic Provider Name and Address Organization Details Last Updated DateTime 10/27/202 5 157.48 cm 20.9 kg/m2 37731.5 3 g 101 /min 20 /min 97.3 [degF] 96 % 124/64 mm[Hg] MALOU ROTHMAN [facility] 5 15:17:25 Date Recorded Body height Heart rate Respiratory rate Body temperature Oxygen saturation Systolic And Diastolic Provider Name and Address Organization Details Last Updated DateTime 5 157.48 cm 111 /min 20 /min 98.3 [degF] 95 % 102/58 mm[Hg] MALOU ROTHMAN [facility] 5 13:50:58 Social History Question Answer Notes LastModified by Vivino ion Details LastModified Time Tobacco Smoking Status Never Smoker LYLE nevarez [facility] 11/13/2023 14:21:39 What Was The Date Of Your Most Recent Tobacco Screening? 01/07/2025 [email or web address] Information not available 01/07/2025 Sex: Unknown Functional Status Question Answer Note LastModified by [employer] Details LastModified Time Do you use any illicit or recreational drugs? No [email or web address] Information not available 01/27/2023 Do you or have you ever used any other forms of tobacco or nicotine? No [email or web address] Information not available 01/27/2023 What is your level of alcohol consumption? None [email or web address] Information not available 01/27/2023 Mental Status None recorded. Family History Nothing Reported. Medical History No medical history recorded. Gynecological HistoryNo gynecological history recorded. Obstetrics History GPAL:G 0 P 0 0 0 0 Immunizations Vaccine Type Date Status Note Provider Nam e and Address Organization Details Recorded Time COVID-19 vaccine, vector-nr, rS-Ad26, PF, 0.5 mL 10/30/2020 completed Janeth nevarez [facility] 01/03/2024 15:39:32 Past Encounters Encounter ID Performer Location Encounter Start Date Encounter Closed Date Diagnosis/Indication Diagnosis SNOMED-CT Code Diagnosis ICD10 Code Diagnosis IMO Codes Diagnosis Note [id number] Morena Byers DO [facility] ([facility]) [address] [place] [address] 11/01/2022 13:49:54 11/02/2022 12:55:58 Moderate recurrent major depression 28606935 F32.A stable. continue citalopram . Dementia 22030573 G30.9 F03.90 continue aricept 10mg daily. no significan t mood decline. counseled daughter. Arthritis of spine 96459 2008 M46.90 stable. prn tylenol. PT for strength Instabilit y of joint of right knee 2472757245 925688 M25.361 brace, PT, and pt to always use walker with transition s and ambulation . Valgus stress test on medial collateral ligament of right knee showed severe laxity and significan t instabilit y. Recommend lateral unloading brace. Knee joint valgus deformity 192608705 M21.069 will get lateral unloading brace and start home PT Recurrent labyrinthitis 752490369 H83.09 continue 1/2 tab prn meclizine, counseled on side effects of medicaton [id number] Morena Byers DO [facility] ([facility]) [address] [place] [address] 01/03/2023 14:27:10 01/03/2023 15:31:34 Mixed anxiety and depressive disorder 973439236 F41.8 Stable. Continue meds.: citalopram . Labs today. Iron defic iency anemia 07383670 D50.9 History of patient appearing anemic today on exam we will repeat lab Dementia 14671768 G30.9 F03.90 continue aricept 10mg daily. no significan t mood decline. counseled daughter. Moderate r ecurrent major depression 54793280 F32.A stable. continue citalopram . Arthritis of spine 85935 2008 M46.90 stable. prn tylenol. PT for strength Instabilit y of joint of right knee 0169659705 175127 M25.361 continue brace. counseled Knee joint valgus deformity 889191198 M21.069 continue lateral unloading brace. counseled Recurrent labyrinthitis 777601619 H83.09 improved. not needing meclizine. [id number] Morena Byers DO [facility] ([facility]) [address] [place] [address] 01/27/2023 10:02:13 01/27/2023 13:45:25 Tremor 15393746 R25.1 likely 2/2 to dementia. counseled pt and daugther. consider eval by neurology for LBD vs parskinson s. Dementia 96859123 G30.9 F03.90 continue aricept 10mg daily. with some mild decline. counseled daughter. Moderate r ecurrent major depression 84895557 F32.A worsening, continue citalopram . [id number] Morena Byers DO [facility] ([facility]) [address] [place] [address] 02/10/2023 12:26:04 02/10/2023 13:30:23 Pain of right knee joint 3606597288 76576 M25.561 Instabilit y of joint of right knee 6603525852 441562 M25.361 severe with lack fo MCL support with continued deformity and continued postive valgus stress test. continue brace. counseled Knee joint valgus deformity 046722844 M21.069 continue lateral unloading brace. counseled on how to put on, wear, use. 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 [id number] Morena Byers DO [facility] ([facility]) [address] [place] [address] 5 06/20/2023 16:52:54 06/20/2023 18:40:56 Chronic diarrhea 100395022 K52.9 Concern for contaminat ed water. Will get stool studies today. They will get their water tested at their well. Counseled on how to do this through the health department . Patient is mildly dehydrated today. Counseled on hydration. Return with worsening or go to the ER. [id number] Morena Byers DO [facility] ([facility]) [address] [place] [address] 11/03/2023 10:50:57 11/03/2023 12:26:51 Dementia 71177007 G30.9 F03.90 continue aricept 10mg daily. with some progressin g decline. counseled daughters. Moderate r ecurrent major depression 67501011 F32.A worsening with loss of . will increase citalopram from 20 to 40mg daily for the next few mts. Mixed anxi ety and depressive disorder 511967767 F41.8 worsening with loss of . will increase citalopram from 20 to 40mg daily for the next few mts. Unsteady when walking 22 713870 R26.89 Worsening. Partially due to worsening right knee instabilit y and pain but also due to chronic muscle weakness and age-relate d debility. Continue walker at home. Will send order for foldable wheelchair to use to get in and out of grocery store, office visits, etc. Will start home physical therapy. Counseled Instabilit y of joint of right knee 7168988669 308815 M25.361 severe with lack fo MCL support with continued deformity and continued postive valgus stress test. continue brace. counseled Pain of ri ght knee joint 0628604832 07436 M25.561 With severe degenerati ve arthritis. Continue wearing brace. Will give as needed meloxicam. Consider joint injection [id number] SKYE AKINS [facility] ([facility]) [address] [place] [address] 5 11/13/2023 14:03:04 11/13/2023 15:07:04 Blood in urine 13131129 R31.9 Acute urin lion tract infection 388149249 N39.0 UA results reviewed and discussed with pt and daughters. Urine had strong odor and visible mucous in the container. We will start antibiotic s. Pt will increase oral fluids and can use cranberry. Return to office with no improvemen t or any problems. Go to ER with severe worsening or severe problems.W e will obtain urine culture Candidiasis of skin 4988 3006 B37.2 Discussed to promote dryness, frequent depends diaper changes, bathe daily and ensure skin is dry. Apply ointment as prescribed . [id number] Morena Byers DO [facility] ([facility]) [address] [place] [address] 13584-452 5 01/03/2024 14:19:38 01/03/2024 18:04:00 Abnormal vaginal bleeding 851136763 N93.9 counseled. possible irritation from pessary. will send to maintenance supervisor. pt prefers female here in [place]. [id number] Morena Byers DO [facility] ([facility]) [address] [place] [address] 5 02/28/2024 13:49:27 02/28/2024 15:17:13 Fatigue 92526811 R53.83 unclear if this is from significan t decline in dementia, or other issue. will check labs. daughter will monitor. Dementia 16204713 G30.9 F03.90 continue aricept 10mg daily. with some conitnued progressin g decline. counseled daughters. mood has improved some with citalopram . continue this. Iron defic iency anemia 92661871 D50.9 History of patient appearing anemic today on exam we will repeat lab [id number] SKYE AKINS [facility] ([facility]) [address] [place] [address] 17307-104 5 04/13/2024 08:58:59 04/13/2024 14:06:04 Impacted cerumen 71917575 H61.23 Cleared with irrigation and curette. Tolerated well. [id number] Morena Byers DO [facility] ([facility]) [address] [place] [address] 15702-893 5 06/18/2024 12:21:41 06/18/2024 17:47:22 Acute on chronic systolic heart failure 273256082 I50.23 presumed. will get CXR, echo, labs to confirm. start lasix daily. monitor weight, leg swelling, SOB. Return to office with no improvemen t or any problems. Go to ER with severe worsening or severe problems. Systolic murmur 20492869 R01.1 new, c/w aortic valve. will get echo. counseled [id number] Morena Byers DO [facility]) [address] [place] [address] 86623-878 5 07/26/2024 11:50:47 07/30/2024 11:05:02 Dementia 53771973 G30.9 F03.90 progressin g. counseled pt and daughter again. continue aricept and citalopram . consider memantine next visit. We discussed online and local resources. Systolic murmur 35811775 R01.1 ECHO with normal EF, all 4 valvees with slight regurg, no need for cardiology or surgical evaluation at this time. counseled daughter who agrees. Dysphagia 36001727 R13.1 0 worsening. will get MBS and ST. counseled Moderate r ecurrent major depression 07114000 F32.A worsening with loss of . will increase citalopram from 20 to 40mg daily for the next few mts. Unsteady when walking 22 977001 R26.89 Worsening, with falls Partially due to worsening right knee instabilit y and pain but also due to chronic muscle weakness and age-relate d debility. Continue walker at home, wheelchair when needed. Pt has done PT recently, and [facility]. Fatigue 74958963 R53.83 unclear if this is from significan t decline in dementia, or other issue. will check labs. daughter will monitor. [id number] SKYE AKINS [facility] ([facility]) [address] [place] [address] 29372-694 5 09/01/2024 10:30:32 09/01/2024 11:39:01 Dysuria 71478431 R30.0 Cough 98528812 R05.9 Acute urin lion tract infection 404665737 N39.0 UA results reviewed and discussed with pt and daughters. Urine had strong odor and visible mucous in the container. We will start antibiotic s. Pt will increase oral fluids. Return to office with no improvemen t or any problems. Go to ER with severe worsening or severe problems.W e will obtain urine cultureF/u appt scheduled this week with PCP [id number] Morena Byers DO [facility] ([facility]) [address] [place] [address] 10594-260 5 09/04/2024 15:47:07 09/04/2024 16:54:56 Recurrent urinary tract infection 295522969 N39.0 09/04/24: counseled continue Macrobid until complete, ok to start Cephalexin 500mg each am. Counseled on diagnosis, treatment options including medication s and possible side effects. [id number] Morena Byers DO [facility] ([facility]) [address] [place] [address] 80873-211 5 10/05/2024 08:56:56 10/08/2024 11:15:15 Moderate recurrent major depression 44317064 F32.A Continue Citalopram 40mg daily. Dementia 95680464 G30.9 F03.90 progressin g. Continue Zyprexa PRN only at this time, if this doesn't seem to be helping we will consider changing. Reassured family this is likely not contributi ng to her edema. Clostridiu m difficile colitis 894141588 A04.72 10/05/24: improving, no longer with diarrhea. Pneumonia 459515560 J18. 9 Improving. Bilateral lower leg edema 433323315 R60.0 10/05/24: counseled will hold off diuretic at this time, will monitor weight and edema closely. [id number] Morena Byers DO [facility] ([facility]) [address] [place] [address] 79214-286 5 10/26/2024 09:26:41 10/28/2024 08:16:49 Dementia 02882485 G30.9 F03.90 progressin g. Continue Zyprexa PRN only at this time, if this doesn't seem to be helping we will consider changing. Reassured family this is likely not contributi ng to her edema. Moderate r ecurrent major depression 16424505 F32.A Continue Citalopram 40mg daily. Unsteady when walking 22 889654 R26.89 Continues w/c in [place]. Dysphagia 38964136 R13.1 0 10/26/24: Family and pt have agreed they do not want pt on a mechanical soft diet, they want her to eat regular food. [id number] Morena Byers DO [facility] ([facility]) [address] [place] [address] 57617[address]979 5 11/09/2024 16:10:20 11/29/2024 12:14:42 Dementia 15857028 G30.9 F03.90 11/09/24: Pt dischargin g home with family today with C per family request. Unsteady when walking 22 840164 R26.89 Continue use of walker and w/c. Moderate r ecurrent major depression 79402019 F32.A Continue Citalopram 40mg daily. [id number] Morena Byers DO [facility] ([facility]) [address] [place] [address] 18775-364 5 12/06/2024 10:37:02 12/10/2024 10:50:45 Dementia 74632710 G30.9 F03.90 stable. continue meds. conitnue with care and supervison at home. Instabilit y of joint of right knee 4335588257 018684 M25.361 severe with lack fo MCL support with continued deformity and continued postive valgus stress test. continue brace. counseled 333926846 F05 4742907 continue zyprexa, now every evening. counseled Essential tremor 0796657 09 G25.0 70744 increase carbidopa/ levadopa to BID. counseled [id number] SKYE ROYAL [facility] ([facility]) [address] [place] [address] 62092-405 5 12/29/2024 10:44:01 12/29/2024 17:11:54 Dysuria 11430667 R30.0 53963 Discussed to take antibiotic as prescribed until completedU rine culture ordered - will notify of any resultsEdu cated patient on increasing PO fluids of water, decreasing caffeine (coffee) and sugary drinks. Return to clinic if any changes, any worsening, any concernsPa tient and daughter verbalized understand ing of plan. Acute sinusitis 52047206 J01.80 [id number] Patient denies any current tenderness on exam, but has complained some this week. WIll start on fluticason e nasal spray. [id number] Morena Byers DO [facility] ([facility]) [address] [place] [address] 66053-297 5 01/07/2025 10:51:47 01/07/2025 11:48:13 Urinary incontinence 051976133 R32 68660187 progressin g, possibly from UTI. counseled on medication options and their risks, expecially with her dementia. daughter wants to wait on these. counseled on diapers and keeping clean. Acute urin lion tract infection 445367556 N39.0 6059411 01/07/25: U cx last week + but resistent to augmentin, swtiched to bactrim but she had possible reaction. she only has 2 days of abx left, but symptoms resolved. will repeat UA/culture and hold off on abx for now. if needed, consider cipro BID x5days.08/25 08/18: counseled continue Macrobid until complete, ok to start Cephalexin 500mg each am. Counseled on diagnosis, treatment options including medication s and possible side effects. [id number] Morena Byers DO [facility] ([facility]) [address] [place] [address] 60012-820 5 02/27/2025 11:30:03 03/11/2025 14:37:06 History of cerebrovascular accident 929186698 Z86.73 372584 Concern for recurrent, improved now. Family working on NH placement. Dementia 45993556 G30.9 F03.90 stable. continue meds. conitnue with care and supervison at home. Acute urin lion tract infection 905476472 N39.0 2487725 01/07/25: U cx last week + but resistent to augmentin, swtiched to bactrim but she had possible reaction. she only has 2 days of abx left, but symptoms resolved. will repeat UA/culture and hold off on abx for now. if needed, consider cipro BID x5days.08/25 08/18: counseled continue Macrobid until complete, ok to start Cephalexin 500mg each am. Counseled on diagnosis, treatment options including medication s and possible side effects. Arthritis of spine 58690 2009 M46.90 02/27/25: Counseled daughter ok to resume Meloxicam as long as it is helping pt's pain. [id number] Morena Byers DO [facility] ([facility]) [address] [place] [address] 88160-477 5 03/20/2025 15:20:51 03/25/2025 13:36:34 Essential tremor 523618504 G25.0 increase carbidopa/ levadopa to BID. counseled Dyspnea 250958809 R06.00 33344765 CXR today. Moderate r ecurrent major depression 02099234 F32.A Continue Citalopram 40mg daily. Dementia 17539048 G30.9 F03.90 stable. continue meds. conitnue with care and supervison at home. 490592317 F05 8089771 continue zyprexa, now every evening. counseled Unsteady when walking 22 701501 R26.89 Continue use of walker and w/c. Difficulty sleeping 3013 23651 G47.9 03/20/25: Counseled stop Olanzapine , start Rexulti. Counseled on diagnosis, treatment options including medication s and possible side effects. Start pack dispensed in clinic this afternoon. Recurrent urinary tract infection 633840777 N39.0 001711 03/20/25: presumed, similar symptoms when she was + for infection previously , will treat with Rocephin injection. 09/04/24: counseled continue Macrobid until complete, ok to start Cephalexin 500mg each am. Counseled on diagnosis, treatment options including medication s and possible side effects. [id number] Morena Byers DO [facility] ([facility]) [address] [place] [address] 5 04/01/2025 17:04:22 04/03/2025 09:45:47 Ischemic stroke 302183049 I63.9 115405 presumed with sudden change in mental status [...] dementia of the Alzheimer type, senile onset 503674614 G30.1 F02.C11 [id number] we will stop zyprexa and star [id number] Stefan Harper DO [facility] ([facility]) [address] [place] [address]38-660 5 04/11/2025 12:13:48 04/17/2025 08:01:40 Post-discharge follow-up 112851905 Z09 722565 Cerebral infarction 4325 87066 I63.9 79590430 Parkinsonism 16837566 G2 0.C 14923583 Atrial flutter 5432257 I 48.92 18108609 Alzheimer's disease 2692 9004 G30.9 F02.80 455049 Gastroesop hageal reflux disease without esophagitis 183626482 K21.9 9301193 [id number] Stefan Harper DO [facility] ([facility]) [address] [place] [address] 12317-782 5 04/15/2025 09:38:45 04/17/2025 11:17:27 Alzheimer's disease 69529106 F02.80 G30.9 396677 Moderate r ecurrent major depression 80139193 F32.A Atrial flutter 3186762 I 48.92 57644168 Essential tremor 6747679 09 G25.0 70123 [id number] Stefan Harper [facility] ([facility]) [address] [place], [place] [address] 04/25/2025 12:51:26 04/30/2025 08:37:42 Alzheimer's disease 77647507 F02.80 G30.9 639606 Atrial flutter 2507144 I 48.92 59995683 Moderate r ecurrent major depression 90960433 F32.A [id number] Stefan Harper [facility]) [address] [place], [place] [address] 05/02/2025 13:21:29 05/07/2025 12:24:36 Moderate recurrent major depression 67653831 F32.A Alzheimer's disease 2692 9004 F02.80 G30.9 896605 [id number] Stefan Harper [facility] ([facility]) [address] [place], [place] [address] 05/20/2025 14:21:41 05/22/2025 08:03:07 Alzheimer's disease 37464472 F02.80 G30.9 928714 Atrial flutter 7489934 I 48.92 [id number] [facility] 722033859 F05 [id number] Stefan Harper [facility] ([facility]) [address] [place] [address] 5 06/13/2025 09:15:12 06/16/2025 14:03:59 Health Concerns Section Related Observation LastModified by Organization Detai ls LastModified Time None Recorded Concern Status LastModified by Organization Details LastModified Time None Recorded Advance Directives Directive None Recorded Payers Insurance Date Sequence Insurance Name Policy Number Policy Liu Covered Member ID Liu Member ID Guarantor Name 06/27/2025 [place] - [facility] (MEDICARE) Isabella Castroide [id number] Isabella Gorman 06/27/2025 1 [place] Isabella Castroide [id number] Isabella Gorman 02/28/2025 2 [employer] - PLAN F (MEDICARE SUPPLEMENT) Isabella Gorman [id number] Isabella Gorman Notes Date Note Type Note Provider Name and Address Organization Details Recorded Time 5 text/html DementiaReported by PatientHPIFor quality, patient reportsshort term memory loss,inability to learn or remember new information,disorienta tion to place, anddisorientation to time. For severity, patient reportsmoderate. For duration, patient reports___ years.ROS as noted in the HPI staff reports pt yelling out. Stefan Harper DO [address] [place] [address], [phone], [facility] 04/29/2025 14:38:17 5 text/html DementiaReported by PatientIFor quality, patient reportsshort term memory loss,inability to learn or remember new information,disorienta tion to place, anddisorientation to time. For severity, patient reportsmoderate. For duration, patient reports___ years.ROS as noted in the HPI staff reports pt yelling out. Stefan Harper DO [address] [place] [address], [phone], [facility] 05/05/2025 17:26:08 5 text/html DementiaReported by PatientHPIFor quality, patient reportsshort term memory loss,inability to learn or remember new information,disorienta tion to place, anddisorientation to time. For severity, patient reportsmoderate. For duration, patient reports___ years.ROS as noted in the HPI staff reports pt yelling out. Stefan Harper DO [address] [place] [address], [phone], [place] [facility] 05/21/2025 14:51:26 5 text/html DementiaReported by PatientHPIFor quality, patient reportsshort term memory loss,inability to learn or remember new information,disorienta tion to place, anddisorientation to time. For severity, patient reportsmoderate. For duration, patient reports___ years.ROS as noted in the HPI re-admit from hospital on comfort care. Not Available Not Available Not Available OBGyn Episode No OBEpisode recorded.
--- OUTSIDE RECORDS SUMMARY | 2025-06-28 18:25 | XMS_ITS | Continuity of Care Document ---
Author Organization [facility] Lewis Jasso [facility] Selene Trevino, [facility] ([facility]) Address [address] [place] [address] Care Team Providers Care Psychiatry Teacher Name Role Phone MORENA BYERS Primary Care Provider [facility] NEUROLOGY Neurologist [phone] Assessment No assessment recorded. Plan of Treatment Reminders Order Date Submit Date Provider Last Modified By Organization Details Last Modified Time Details Appointments None recorded. Lab None recorded. Referral None recorded. Procedures None recorded. Surgeries None recorded. Imaging None recorded. Medication Orders Geodon 20 mg capsule 025 025 [facility] [address], [address], 18:28:51 Patient TargetsNo targets recorded. Patient InstructionsNo instructions recorded. Reason for Referral None Reported. Results Created Date Observation Date Name Description Value Unit Range Abnormal Flag Note LastModifiedBy Organization Detail LastModifiedTime 03/20/2003/20/2025 XR, chest , 2 view No observ ation record ed. [facility] ([facility]) [address] [place], [address], 03/21/2025 07:57:39 03/22/2003/20/2025 XR, chest , 2 view No observ ation record ed. [address] [place], [address], 04/01/2025 18:23:02 Result Notes None recorded. Problems Name Problem SNOMED Code Status Onset Date Resolution Date Notes Provider Name and Address Organization Details Recorded Time Iron deficiency anemia 51076520 Active 2022 Janeth nevarez [facility] 5 13:38:14 Dementia 25434640 [facility] 2022 [facility] 5 13:38:14 Instabilit y of joint of right knee 5110109602259 102 Active 2022 Janeth Aguilar geri [facility] 5 13:38:13 Arthritis of spine 719971949 Active 2022 [facility] 5 13:38:14 Knee joint valgus deformity 317833633 Active 2022 Janeth Aguilar geri [facility] 5 13:38:14 Recurrent labyrinthi tis 174332330 Active 2022 Janeth Aguilar [facility] 5 13:38:13 Moderate recurrent major depression 54197324 Active 2022 Janeth Aguilar [facility] 5 13:38:13 Rupture of medial collateral ligament of knee 400561235 Active 2022 Janethann Aguilar [facility] 5 13:38:14 Pain of right knee joint 9440826943970 00 Active 2022 Janethann Aguilar [facility] 5 13:38:14 Chronic diarrhea 998159328 Active 2022 Janeth nevarez [facility] 5 13:38:14 Unsteady when walking 44688434 Active 2023 Janeth nevarez, [facility] 5 13:38:13 Abnormal vaginal bleeding 920857182 Active 2023 Janeth Aguilar null, [facility] 5 13:38:14 Fatigue 00700325 Active 2023 Janeth Aguilar null, [facility] 5 13:38:14 Acute on chronic systolic heart failure 292469970 Active 2023 Janeth Jeff null, [facility] 5 13:38:14 Systolic murmur 57484573 Active 2023 Janeth Jeff null, [facility] 5 13:38:14 Dysphagia 24875040 Active 2024 Janeth Aguilar null, [facility] 5 13:38:14 Essential tremor 680350565 Active [address], [address] , [facility] 5 12:00:52 Sundowning 065277640 Active 2024 Morena Byers [address], [address] , [facility] 5 12:00:53 Acute urinary tract infection 981065681 Active 2024 Morena Byers [address], [address] , [facility] 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 5 13:46:06 Parkinsoni sm 22031969 Active 2024 MALOU nevarez [facility] 13:46:07 Atrial flutter 6274087 Active 2024 MALOU nevarez [facility] 13:46:10 Alzheimer' s disease 46948945 Active 2024 MALOU nevarez [facility] 13:46:11 Gastroesop hageal reflux disease without esophagiti s 637410911 Active 2024 MALOU nevarez [facility] 13:46:13 Problem Notes None recorded. Procedures Surgical History Date Name Laterality Status Provider Name and Address Organization Details Recorded Time 04/13/20 24 Cerumen Removal-Irrigati on completed AMALIA GODFREY, [employer] [address] [place], [address], [facility], Selene 04/15/2024 16:22:05 Hysterectomy completed LYLE BARRIGA [facility] [place] 11/13/2023 14:22:09 Imaging Results None recorded. Procedure Notes None recorded. Medical Equipment None Reported. Allergies Allergen ID Allergen Name Allergen Category Reaction Reaction Severity Criticality Documentation Date Start Date Code Code System Note Provider Name and Address Organization Details Recorded Time 42249 haloperid ol medicatio n Not available Not [...] Available lansopraz ole daily 11/02 completed DM/sd; 41214; Recorded 06/14/20 12:36PM by Maisha Pearson (Authori zed through Morena Byers DO), Office Visit; Refill Quantity : 90; Tablet; Not Available Not Available Not Available donepezil daily 11/02 completed 26524; Recorded 06/14/20 12:36PM by Maisha Pearson (Authori [...] t Available Vitals Date Recorded Body height Oxygen saturation Heart rate Respiratory rate Systolic And Diastolic Provider Name and Address Organization Details Last Updated DateTime 5 157.48 cm 99 % 81 /min 18 /min 120/80 mm[Hg] Janeth Aguilar [facility], [facility] 5 17:57:32 Social History Question Answer Notes LastModified by Organizat ion Details LastModified Time Tobacco Smoking Status Never Smoker LYLE nevarez, [facility] 11/13/2023 14:21:39 What Was The Date Of Your Most Recent Tobacco Screening? 01/07/2025 [email or web address] Information not available 01/07/2025 Sex: Unknown Functional Status Question Answer Note LastModified by Organizat ion Details LastModified Time Do you use any illicit or recreational drugs? No [email or web address] Information not available 01/27/2023 Do you or have you ever used any other forms of tobacco or nicotine? No Information not available 01/27/2023 What is your level of alcohol consumption? None [email or web address] Information not available 01/27/2023 Mental Status None recorded. Family History Nothing Reported. Medical History No medical history recorded. Gynecological HistoryNo gynecological history recorded. Obstetrics History GPAL:G 0 P 0 0 0 0 Immunizations Vaccine Type Date Status Note Provider Nam e and Address Organization Details Recorded Time COVID-19 vaccine, vector-nr, rS-Ad26, PF, 0.5 mL 10/30/2020 completed Janeth nevarez [facility] 01/03/2024 15:39:32 Past Encounters Encounter ID Performer Location Encounter Start Date Encounter Closed Date Diagnosis/Indication Diagnosis SNOMED-CT Code Diagnosis ICD10 Code Diagnosis IMO Codes Diagnosis Note [id number] Morena Byers DO [facility] ([facility]) [address] [place] [address] 03/20/2025 15:20:51 03/25/2025 13:36:34 Essential tremor 001306525 G25.0 increase carbidopa/ levadopa to BID. counseled Dyspnea 136271337 R06.00 85482729 CXR today. Moderate r ecurrent major depression 96124304 F32.A Continue Citalopram 40mg daily. Dementia 90770478 G30.9 F03.90 stable. continue meds. conitnue with care and supervison at home. 496812871 F05 7760012 continue zyprexa, now every evening. counseled Unsteady when walking 22 120877 R26.89 Continue use of walker and w/c. Difficulty sleeping 3016 27059 G47.9 8/27/25: Counseled stop Olanzapine , start Rexulti. Counseled on diagnosis, treatment options including medication s and possible side effects. Start pack dispensed in clinic this afternoon. Recurrent urinary tract infection 305177999 N39.0 046173 03/20/25: presumed, similar symptoms when she was + for infection previously , will treat with Rocephin injection. 09/04/24: counseled continue Macrobid until complete, ok to start Cephalexin 500mg each am. Counseled on diagnosis, treatment options including medication s and possible side effects. [id number] Morena Byers DO [facility] ([facility]) [address] [place] [address] 04/01/2025 17:04:22 04/03/2025 09:45:47 Ischemic stroke 884043103 I63.9 902191 presumed with sudden change in mental status [...] dementia of the Alzheimer type, senile onset 566570343 G30.1 F02.C11 9779090163 we will stop zyprexa and star Health Concerns Section Related Observation LastModified by Organization Detai ls LastModified Time None Recorded Concern Status LastModified by Organization Details LastModified Time None Recorded Payers Encounter Date Sequence Insurance Name Policy Number Policy Liu Covered Member ID Liu Member ID Guarantor Name 04/01/2025 1 [place] Isabella Gorman [id number] Isabella Gorman 04/01/2025 2 [employer] - PLAN F (MEDICARE SUPPLEMENT) Isabella Gorman [id number] Isabella Gorman Notes Date Note Type Note Provider Name and Address Organization Details Recorded Time 04/01/2025 text/html ROS as noted in the HPI Pt presents for hospital f/u She went to [facility] on 03/27/25 and was admitted for 2 nights. discharged on 03/29. Records: Chief Complaint: AMSHistory of Present IllnessIsabella Gorman is a 80 year old female with a history of dementia, remote intracranial hemorrhage, gastroesophageal reflux disease (GERD), and a very large hernia who lives at home with support from her son and a caregiver per history obtained from her daughter. She reportedly fell from the couch early this morning, striking her head on the floor. Altered mental status was first noticed yesterday. Family describes that yesterday afternoon she was difficult to rouse, minimally responsive to yes/no questions, and appeared confused. She was given trazodone at bedtime to help sleep. Overnight she intermittently sat up and was restless; by morning she was described as unresponsive. Family reports recent start of brexpiprazole (Rexulti) on Tuesday. They note variable recognition of family members consistent with her baseline dementia, variable mobility using a walker, and recent difficulty using her right (dominant) hand; caregiver encouraged use of the right hand yesterday. She reportedly vomited this morning while on the floor. Recent symptoms included frequent trips to the bathroom on Tuesday and episodes of evening anxiety between 4 6 pm, historically relieved by alprazolam (Xanax). Home pulse oximetry during anxiety episodes reportedly reads 94% or higher. Family is pursuing half-way placement and Medicaid assistance. PROCEDURE INFORMATION:Exam: XR ChestExam date and time: 03/27/25ACCESSION #: [id number] XR/XR chest 1V portable [id number]:1. A very large hiatal hernia is again seen containing air-filled bowel,likely the stomach.2. No acute radiographic cardiopulmonary abnormality. CT/CT head wo con* [id number]:1. No acute intracranial hemorrhage or edema.2. Moderate to severe atrophy and small vessel changes. Similar to the prior study of 02/20/2025. [facility]ian [place] is wanting some help with caring for pt She is not sleeping much at nightShe fell to the floor from the couch twice this morning and had to be assisted back up Trazodone was cut in half to 50 mg dose and they gave her 75mg the last two nights The anayeliulti was over 500 dollars at the pharmacy and wants something more affordable They feel that she is still confused and altered mental status. IT is hard for her to form words, only successful 20% of the time or less, and only a few words at a time. Memory is worse, not recalling things from minutes ago, more agitated and irritable. She is unable to stand or walk with assistance. Family is having difficulty transferring her and doing simple adls such as changing her clothes This change in mental status and decrioration of ADLs was sudden, and has not improved despite holding all her meds for 3 days. workup negative for acute infection. Morena Byers, DO [address] [place], [address], [facility], LM[facility] 04/02/2025 00:00:55 OBGyn Episode No OBEpisode recorded.
--- OUTSIDE RECORDS SUMMARY | 2025-06-28 18:25 | XMS_ITS | Clinical Summary ---
Author Organization [facility] Address [address] 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
--- OUTSIDE RECORDS SUMMARY | 2025-06-28 18:25 | XMS_ITS | Continuity of Care Document ---
Author Organization [facility] Selene Trevino, [facility] ([facility]) Address [address] [place] [address] Care Team Providers Care Rn Compliance Name Role Phone MORENA BYERS Primary Care Provider [facility] NEUROLOGY Neurologist Assessment No assessment recorded. [...] By Organization Details Last Modified Time 04/25/2025 [id number] Encouraged to give zoloft time, scheduled to increase on 04/30. [email or web address] Not available 04/25/2025 13:14:37 Reason for Referral None Reported. Problems Name Problem SNOMED Code Status Onset Date Resolution Date Notes Provider Name and Address Organization Details Recorded Time Iron deficiency anemia 92006634 Active 2022 [facility] 13:38:14 Dementia 32186998 Active 2022 [facility] 13:38:14 Instabilit y of joint of right knee 1270034465850 102 Active 2022 [facility] 5 13:38:13 Arthritis of spine 838509580 Active 2022 Janethann nevarez, [facility] 5 13:38:14 Knee joint valgus deformity 447334410 Active 2022 Janethann Aguilar [facility], [facility] 5 13:38:14 Recurrent labyrinthi tis 278355768 Active 2022 Janethann Solomone [facility] 5 13:38:13 Moderate recurrent major depression 47770845 Active 2022 Janeth Aguilar [facility] 5 13:38:13 Rupture of medial collateral ligament of knee 929876722 Active 2022 Janeth Aguilar [facility] 5 13:38:14 Pain of right knee joint 2045665612615 00 Active 2022 Janethann Aguilar [facility] 5 13:38:14 Chronic diarrhea 023383905 Active 2022 Janeth Aguilar [facility] 5 13:38:14 Unsteady when walking 86914845 Active 2023 Janeth Aguilar [facility] 5 13:38:13 Abnormal vaginal bleeding 369862182 Active 2023 Janeth Aguilar [facility], [facility] 5 13:38:14 Fatigue 23582809 Active 2023 Janeth Aguilar [facility] 5 13:38:14 Acute on chronic systolic heart failure 309370867 Active 2023 Janeth nevarez [facility] 13:38:14 Systolic murmur 57634079 Active 2023 Janeth Jeff nevarez [facility] 13:38:14 Dysphagia 75744480 Active 2024 Janeth Aguilar geri [facility] 13:38:14 Essential tremor 328365272 Active 2024 Morena Byers, [address], [address] , [facility] 12:00:52 Sundowning 401761890 Active 2024 Morenamarisol Byers [address], [address] [place] [address] , [facility] 12:00:53 Acute urinary tract infection 435178528 Active 2024 Morena Byers, [address], [address] , [facility] 11:40:35 Urinary incontinen ce 848922718 Active 2024 More[address] Z[address], [address] , [facility] 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 18:33:38 Ischemic stroke 450268202 Active 2024 Morena Byers [address], [address] , [facility] 18:33:40 Post-disch arge follow-up 548399385 Active 2024 MALOU nevarez, [facility] 13:46:06 Cerebral infarction 126386607 Active 2024 MALOU nevarez, [facility] 13:46:06 Parkinsoni sm 72999551 Active 2024 MALOU nevarez, [facility] 13:46:07 Atrial flutter 5980468 Active 2024 MALOU nevarez, [facility] 13:46:10 Alzheimer' s disease 07345904 Active 2024 MALOU nevarez [facility] 13:46:11 Gastroesop hageal reflux disease without esophagiti s 784128954 Active 2024 MALOU nevarez, [facility] 13:46:13 Problem Notes None recorded. Procedures Surgical History Date Name Laterality Status Provider Name and Address Organization Details Recorded Time 04/13/20 24 Cerumen Removal-Irrigati on completed AMALIAWEI GODFREY[address], [address] 04/15/2024 16:22:05 Hysterectomy completed LYLE LINUS [facility] 11/13/2023 14:22:09 Imaging Results None recorded. Procedure Notes None recorded. Medical Equipment None Reported. Allergies Allergen ID Allergen Name Allergen Category Reaction Reaction Severity Criticality Documentation Date Start Date Code Code System Note Provider Name and Address Organization Details Recorded Time 54855 haloperid ol medicatio n Not available Not [...] Available lansopraz ole daily 11/02 completed DM/sd; 35897; Recorded 06/14/20 12:36PM by Maisha Pearson (Authori gume through Morena Byers DO), Office Visit; Refill Quantity : 90; Tablet; Not Available Not Available Not Available donepezil daily 11/02 completed 97490; Recorded 06/14/20 12:36PM by Maisha Pearson (Claudine [...] Details Last Updated DateTime 04/25/2025 157.48 cm MALOU STEPHAN [facility] 04/25/2025 13:12:00 Social History Question Answer Notes LastModified by [employer] Details LastModified Time Tobacco Smoking Status Never Smoker [facility] 11/13/2023 14:21:39 What Was The Date Of Your Most Recent Tobacco Screening? 01/07/2025 outs Information not available 01/07/2025 Sex: Unknown Functional Status Question Answer Note LastModified by Organizat ion Details LastModified Time Do you use any illicit or recreational drugs? No [email or web address] Information not available 01/27/2023 Do you or have you ever used any other forms of tobacco or nicotine? No Information not available 01/27/2023 What is your level of alcohol consumption? None [email or web address] Information not available 01/27/2023 Mental Status None recorded. Family History Nothing Reported. Medical History No medical history recorded. Gynecological HistoryNo gynecological history recorded. Obstetrics History GPAL:G 0 P 0 0 0 0 Immunizations Vaccine Type Date Status Note Provider Joni grigsby and Address Organization Details Recorded Time COVID-19 vaccine, vector-nr, rS-Ad26, PF, 0.5 mL 10/30/2020 completed Janeth nevarez [facility], Selene 01/03/2024 15:39:32 Past Encounters Encounter ID Performer Location Encounter Start Date Encounter Closed Date Diagnosis/Indication Diagnosis SNOMED-CT Code Diagnosis ICD10 Code Diagnosis IMO Codes Diagnosis Note [id number] Morena Byers DO [facility] ([facility]) [address] [place] [address] 04/01/2025 17:04:22 04/03/2025 09:45:47 Ischemic stroke 512616540 I63.9 497243 presumed with sudden change in mental status [...] dementia of the Alzheimer type, senile onset 274998193 G30.1 F02.C11 1224618859 we will stop zyprexa and star [id number] Stefan Harper DO [facility]) [address] [place] [address] 04/11/2025 12:13:48 04/17/2025 08:01:40 Post-discharge follow-up 664685682 Z09 411785 Cerebral infarction 4325 08661 I63.9 44796678 Parkinsonism 42160246 G2 0.C 30017624 Atrial flutter 5811479 I 48.92 38056175 Alzheimer's disease 2692 9004 G30.9 F02.80 862043 Gastroesop hageal reflux disease without esophagitis 979337777 K21.9 0607244 [id number] Stefan Harper DO [facility] ([facility]) [address] [place] [address] 04/15/2025 09:38:45 04/17/2025 11:17:27 Alzheimer's disease 37667149 F02.80 G30.9 924142 Moderate r ecurrent major depression 92472381 F32.A Atrial flutter 3745812 I 48.92 68591203 Essential tremor 6953407 09 G25.0 45190 [id number] Stefan Harper DO [facility] ([facility]) [address] [place] [address] 04/25/2025 12:51:26 04/30/2025 08:37:42 Alzheimer's disease 98060162 F02.80 G30.9 112899 Atrial flutter 6699138 I 48.92 24489970 Moderate r ecurrent major depression 46003312 F32.A Health Concerns Section Related Observation LastModified by Organization Detai ls LastModified Time None Recorded Concern Status LastModified by Organization Details LastModified Time None Recorded Payers Encounter Date Sequence Insurance Name Policy Number Policy Liu Covered Member ID Liu Member ID Guarantor Name 04/25/2025 1 [place] Isabella Gorman [id number] Isabella Gorman 04/25/2025 2 [employer] - PLAN F (MEDICARE SUPPLEMENT) Isabella Gorman [id number] Isabella Gorman Notes Date Note Type Note Provider Name and Address Organization Details Recorded Time 04/25/2025 text/html DementiaReported by PatientHPIFor quality, patient reportsshort term memory loss,inability to learn or remember new information,disorienta tion to place, anddisorientation to time. For severity, patient reportsmoderate. For duration, patient reports___ years.ROS as noted in the HPI staff reports pt yelling out. Stefan Harper DO [address] [place] [address], [phone], [facility] 04/29/2025 14:38:17 OBGyn Episode No OBEpisode recorded.
--- OUTSIDE RECORDS SUMMARY | 2025-06-28 18:25 | XMS_ITS | Continuity of Care Document ---
Author Organization MICHELLE Campos [facility] Selene Trevino, [facility] ([facility]) Address [address] [place] [address] Care Team Providers Care Intake Manager Name Role Phone MORENA BYERS Primary Care Provider [facility] NEUROLOGY Neurologist Assessment No assessment recorded. [...] Modified By Organization Details Last Modified Time 04/11/2025 [id number] Recent hospital admission, she didn't do well at home and ended up back up in the hospital. Atrial flutter with rvr. Decrease amiodarone to 100mg daily. Very confused. [email or web address] Not available 04/11/2025 13:47:51 Reason for Referral None Reported. Results Created Date Observation Date Name Description Value Unit Range Abnormal Flag Note LastModifiedBy Organization Detail LastModifiedTime 03/20/2003/20/2025 XR, chest , 2 view No observ ation record ed. RAYO [facility] ([facility]) [address] [place], [address], 03/21/2025 07:57:39 03/22/20 25 03/20/2025 XR, chest , 2 view No observ ation record ed. [address] [place], [address], 04/01/2025 18:23:02 Result Notes None recorded. Problems Name Problem SNOMED Code Status Onset Date Resolution Date Notes Provider Name and Address Organization Details Recorded Time Iron deficiency anemia 51864956 Active 2022 [facility] 5 13:38:14 Dementia 73155898 Active 2022 Janeth Aguilar [facility] 5 13:38:14 Instabilit y of joint of right knee 6629595127013 102 Active 2022 Janeth Aguilar [facility] 5 13:38:13 Arthritis of spine 472999571 Active 2022 Janeth Aguilar [facility] 5 13:38:14 Knee joint valgus deformity 894992792 Active 2022 Janeth Aguilar [facility] 5 13:38:14 Recurrent labyrinthi tis 408585084 Active 2022 Janeth Aguilar [facility] 5 13:38:13 Moderate recurrent major depression 43921809 Active 2022 Janeth Aguilar [facility] 5 13:38:13 Rupture of medial collateral ligament of knee 961163069 Active 2022 Janeth Aguilar [facility] 5 13:38:14 Pain of right knee joint 5374621178626 00 Active 2022 Janeth Aguilar [facility] 5 13:38:14 Chronic diarrhea 473659509 Active 2022 Janeth Aguilar null, [facility] 5 13:38:14 Unsteady when walking 19094311 Active 2023 Janeth nevarez, [facility] 5 13:38:13 Abnormal vaginal bleeding 609281088 Active 2023 Janeth Solomone geri, [facility] 5 13:38:14 Fatigue 11666489 Active 2023 Janeth Aguilar null, [facility] 5 13:38:14 Acute on chronic systolic heart failure 006564224 Active 2023 Janeth Solomone geri, [facility] 5 13:38:14 Systolic murmur 44354955 Active 2023 Janeth Solomone null, [facility] 5 13:38:14 Dysphagia 76598015 Active 2024 Janeth Jeff [facility], [facility] 5 13:38:14 Essential tremor 410437184 Active 2024 Morena Byers [address], [address] , [facility] 5 12:00:52 Sundowning 774701284 Active 2024 Morena Byers [address], [address] , [facility] 5 12:00:53 Acute urinary tract infection 178232928 Active 2024 Morena Byers [address], [address] , [facility] 5 11:40:35 Urinary incontinen ce 283313462 Active [address], [address] , [facility] 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 18:33:38 Ischemic stroke 772961176 Active [address], [address] , [facility] 18:33:40 Post-disch arge follow-up 546788103 Active 2024 MALOU nevarez [facility] 13:46:06 Cerebral infarction 094756004 Active 2024 MALOU nevarez [facility] 13:46:06 Parkinsoni sm 52959620 Active 2024 MALOU nevarez [facility] 13:46:07 Atrial flutter 1745676 Active 2024 MALOU nevarez, [facility] 13:46:10 Alzheimer' s disease 46643193 Active 2024 MALOU nevarez [facility] 13:46:11 Gastroesop hageal reflux disease without esophagiti s 411182594 Active 2024 MALOU nevarez [facility] 09/18/202 5 13:46:13 Problem Notes None recorded. Procedures Surgical History Date Name Laterality Status Provider Name and Address Organization Details Recorded Time 04/13/20 24 Cerumen Removal-Irrigati on completed SKYE AKINS [address] [place], [address], [facility] 04/15/2024 16:22:05 Hysterectomy [facility] 11/13/2023 14:22:09 Imaging Results None recorded. Procedure Notes None recorded. Medical Equipment None Reported. Allergies Allergen ID Allergen Name Allergen Category Reaction Reaction Severity Criticality Documentation Date Start Date Code Code System Note Provider Name and Address Organization Details Recorded Time 14909 haloperid ol medicatio n Not available Not [...] Available lansopraz ole daily 11/02 completed DM/sd; 04107; Recorded 06/14/20 12:36PM by Maisha Pearson (Authori zed through Morena Byers DO), Office Visit; Refill Quantity : 90; Tablet; Not Available Not Available Not Available donepezil daily 11/02 completed 54318; Recorded 06/14/20 12:36PM by Maisha Pearson (Authori [...] d Address Organization Details Last Updated DateTime 04/11/2025 157.48 cm MALOU ROTHMAN [facility], [facility] 04/11/2025 13:42:59 Date Recorded Body height Heart rate Respiratory rate Body temperature Oxygen saturation Systolic And Diastolic Provider Name and Address Organization Details Last Updated DateTime 5 157.48 cm 66 /min 20 /min 97.8 [degF] 96 % 132/74 mm[Hg] MALOU ROTHMAN [facility] 5 15:38:41 Social History Question Answer Notes LastModified by Organizat ion Details LastModified Time Tobacco Smoking Status Never Smoker LYLE BARRIGA geri [facility] 11/13/2023 14:21:39 What Was The Date Of Your Most Recent Tobacco Screening? 01/07/2025 [email or web address] Information not available 01/07/2025 Sex: Unknown Functional Status Question Answer Note LastModified by Organizat ion Details LastModified Time Do you use any illicit or recreational drugs? No [email or web address] Information not available 01/27/2023 Do you or have you ever used any other forms of tobacco or nicotine? No [email or web address] Information not available 01/27/2023 What is your level of alcohol consumption? None [email or web address] Information not available 01/27/2023 Mental Status None recorded. Family History Nothing Reported. Medical History No medical history recorded. Gynecological HistoryNo gynecological history recorded. Obstetrics History GPAL:G 0 P 0 0 0 0 Immunizations Vaccine Type Date Status Note Provider Nam e and Address Organization Details Recorded Time COVID-19 vaccine, vector-nr, rS-Ad26, PF, 0.5 mL 10/30/2020 completed Janeth nevarez [facility] 01/03/2024 15:39:32 Past Encounters Encounter ID Performer Location Encounter Start Date Encounter Closed Date Diagnosis/Indication Diagnosis SNOMED-CT Code Diagnosis ICD10 Code Diagnosis IMO Codes Diagnosis Note [id number] Morena Byers DO [facility] ([facility]) [address] [place] [address] 03/20/2025 15:20:51 03/25/2025 13:36:34 Essential tremor 041886200 G25.0 increase carbidopa/ levadopa to BID. counseled Dyspnea 079107399 R06.00 14072032 CXR today. Moderate r ecurrent major depression 80729785 F32.A Continue Citalopram 40mg daily. Dementia 45780571 G30.9 F03.90 stable. continue meds. conitnue with care and supervison at home. 241798819 F05 4097473 continue zyprexa, now every evening. counseled Unsteady when walking 22 696086 R26.89 Continue use of walker and w/c. Difficulty sleeping 3013 85737 G47.9 03/20/25: Counseled stop Olanzapine , start Rexulti. Counseled on diagnosis, treatment options including medication s and possible side effects. Start pack dispensed in clinic this afternoon. Recurrent urinary tract infection 386307114 N39.0 942280 03/20/25: presumed, similar symptoms when she was + for infection previously , will treat with Rocephin injection. 09/04/24: counseled continue Macrobid until complete, ok to start Cephalexin 500mg each am. Counseled on diagnosis, treatment options including medication s and possible side effects. [id number] Morena Byers DO [facility] ([facility]) [address] [place] [address] 04/01/2025 17:04:22 04/03/2025 09:45:47 Ischemic stroke 235331173 I63.9 809393 presumed with sudden change in mental status [...] dementia of the Alzheimer type, senile onset 631631179 G30.1 F02.C11 1019107151 we will stop zyprexa and star [id number] Stefan Harper DO [facility] ([facility]) [address] [place] [address] 04/11/2025 12:13:48 04/17/2025 08:01:40 Post-discharge follow-up 079941275 Z09 374045 Cerebral infarction 4325 32110 I63.9 16579951 Parkinsonism 00057482 G2 0.C 47309602 Atrial flutter 1472804 I 48.92 53459281 Alzheimer's disease 2692 9004 G30.9 F02.80 431709 Gastroesop hageal reflux disease without esophagitis 312212241 K21.9 4919693 Health Concerns Section Related Observation LastModified by Organization Detai ls LastModified Time None Recorded Concern Status LastModified by Organization Details LastModified Time None Recorded Payers Encounter Date Sequence Insurance Name Policy Number Policy Liu Covered Member ID Liu Member ID Guarantor Name 04/11/2025 1 [place] Isabella Gorman [id number] Isabella Gorman 04/11/2025 2 [employer] - PLAN F (MEDICARE SUPPLEMENT) Isabella Gorman [id number] Isabella Gorman Notes Date Note Type Note Provider Name and Address Organization Details Recorded Time 04/11/2025 text/html DementiaReported by PatientHPIFor quality, patient reportsshort term memory loss,inability to learn or remember new information,disorienta tion to place, anddisorientation to time. For severity, patient reportsmoderate. For duration, patient reports___ years.ROS as noted in the HPI new admit to SNF after hospital stay. Stefan Harper DO [address] [place] [address], [phone], [facility] Selene Trevino 04/16/2025 15:37:42 04/15/2025 text/html DementiaReported by PatientHPIFor quality, patient reportsshort term memory loss,inability to learn or remember new information,disorienta tion to place, anddisorientation to time. For severity, patient reportsmoderate. For duration, patient reports___ years.ROS as noted in the HPI discuss care and goals with daughter. Stefan Harper DO [address] [place] [address], [phone], [facility] Selene Trevino 04/16/2025 15:36:35 OBGyn Episode No OBEpisode recorded.
--- OUTSIDE RECORDS SUMMARY | 2025-06-28 18:25 | XMS_ITS | Continuity of Care Document ---
Author Organization [facility] Belinda, Selene, [facility] ([facility]) Address [address] [place] [address] Care Team Providers Care Wreath And Garland Maker Hand Name Role Phone MORENA BYERS Primary Care Provider [facility] NEUROLOGY Neurologist [phone] Assessment No assessment recorded. Plan of Treatment [...] Modified By Organization Details Last Modified Time 05/20/2025 [id number] continues to yel l out with zyprexa. Will increase to 5mg bid. if not improved by next week increase to 10 [email or web address] Not available 05/20/2025 15:22:19 Reason for Referral None Reported. Problems Name Problem SNOMED Code Status Onset Date Resolution Date Notes Provider Name and Address Organization Details Recorded Time Iron deficiency anemia 45173088 Active 2022 [facility] 13:38:14 Dementia 00634576 Active 2022 [facility] 13:38:14 Instabilit y of joint of right knee 6246361289089 102 Active 2022 [facility] 13:38:13 Arthritis of spine 728493921 Active 2022 Janethann Aguilar geri, [facility] 5 13:38:14 Knee joint valgus deformity 202200919 Active 2022 Janethann nevarez, [facility] 5 13:38:14 Recurrent labyrinthi tis 490165423 Active 2022 Janethann Solomone null, [facility] 5 13:38:13 Moderate recurrent major depression 83327069 Active 2022 Janeth Aguilar [facility], [facility] 5 13:38:13 Rupture of medial collateral ligament of knee 013844507 Active 2022 Janeth nevarez [facility] 5 13:38:14 Pain of right knee joint 6237236803027 00 Active 2022 Janetheden Solomone [facility], [facility] 5 13:38:14 Chronic diarrhea 453721571 [facility] 20[facility] 13:38:14 Unsteady when walking 17163361 Active 2023 Janeth nevarez, [facility] 5 13:38:13 Abnormal vaginal bleeding 108066000 Active 2023 Janeth nevarez, [facility] 5 13:38:14 Fatigue 53713255 Active 2023 Janeth nevarez [facility] 5 13:38:14 Acute on chronic systolic heart failure 538866374 Active 2023 Janeth Aguilar null, [facility] 5 13:38:14 Systolic murmur 72914389 Active 2023 Janeth Aguilar null, [facility] 5 13:38:14 Dysphagia 06947776 Active 2024 Janeth Aguilar null, [facility] 13:38:14 Essential tremor 595026219 Active 2024 Morenamarisol Hillon, [address], [address] , [facility] 12:00:52 Sundowning 882929143 Active 2024 Morena Byers [address], [address] , [facility] 12:00:53 Acute urinary tract infection 371511191 Active 2024 Morena Byers [address], [address] , [facility] 11:40:35 Urinary incontinen ce 967697533 Active 2024 Morena Byers [address], [address] , [facility] 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 18:33:38 Ischemic stroke 153167667 Active 2024 Morena Byers [address] , [facility] 5 18:33:40 Post-disch arge follow-up 698772641 Active 2024 MALOU nevarez, [facility] 5 13:46:06 Cerebral infarction 897272061 Active 2024 MALOU nevarez, [facility] 5 13:46:06 Parkinsoni sm 15282380 Active 2024 MALOU nevarez, [facility] 5 13:46:07 Atrial flutter 4174429 Active 2024 [facility] 5 13:46:10 Alzheimer' s disease 87142771 Active 2024 MALOU nevarez, [facility] 5 13:46:11 Gastroesop hageal reflux disease without esophagiti s 230258974 Active 2024 [facility] 13:46:13 Problem Notes None recorded. Procedures Surgical History Date Name Laterality Status Provider Name and Address Organization Details Recorded Time 04/13/20 24 Cerumen Removal-Irrigati on completed MONI [address], [address], [facility] 04/15/2024 16:22:05 Hysterectomy completed LYLE BARRIGA [facility] 11/13/2023 14:22:09 Imaging Results None recorded. Procedure Notes None recorded. Medical Equipment None Reported. Allergies Allergen ID Allergen Name Allergen Category Reaction Reaction Severity Criticality Documentation Date Start Date Code Code System Note Provider Name and Address Organization Details Recorded Time 06730 haloperid ol medicatio n Not available Not available Not available 06/12/20252024 5093 RxNorm Not Available rayo - External Data Service - prod 5 08:18:22 Medications Name Sig Start Date Stop [...] Available lansopraz ole daily 11/02 completed DM/sd; 27722; Recorded 06/14/20 12:36PM by Maisha Pearson (Authori lizzyd through Morena Byers , DO), Office Visit; Refill Quantity : 90; Tablet; Not Available Not Available Not Available donepezil daily 11/02 completed 51192; Recorded 06/14/20 12:36PM by Maisha Pearson (Claudine dunaway through Morena Byers DO), Office Visit; Refill Quantity : 0; Not Available Not Available Not Available multivita min active Not Available Not Available Not Available fluticaso ne propion-s almeterol 11/02 completed 0; Recorded 06/14/20 22 12:36PM by Maisha Pearson, Office Visit; Not [...] t Available Vitals Date Recorded Body height Body mass index (BMI) Body weight Heart rate Respiratory rate Body temperature Oxygen saturation Systolic And Diastolic Provider Name and Address Organization Details Last Updated DateTime 157.48 cm 20.9 kg/m2 71158.5 3 g 101 /min 20 /min 97.3 [degF] 96 % 124/64 mm[Hg] MALOU STEPHAN [facility] 15:17:25 Social History Question Answer Notes LastModified by IEV Details LastModified Time Tobacco Smoking Status Never Smoker LYLE nevarez [facility] 11/13/2023 14:21:39 What Was The Date Of Your Most Recent Tobacco Screening? 01/07/2025 [email or web address] Information not available 01/07/2025 Sex: Unknown Functional Status Question Answer Note LastModified by IEV Details LastModified Time Do you use any illicit or recreational drugs? No [email or web address] Information not available 01/27/2023 Do you or have you ever used any other forms of tobacco or nicotine? No [email or web address] Information not available 01/27/2023 What is your level of alcohol consumption? None [email or web address] Information not available 01/27/2023 Mental Status None recorded. Family History Nothing Reported. Medical History No medical history recorded. Gynecological HistoryNo gynecological history recorded. Obstetrics History GPAL:G 0 P 0 0 0 0 Immunizations Vaccine Type Date Status Note Provider Nam e and Address Organization Details Recorded Time COVID-19 vaccine, vector-nr, rS-Ad26, PF, 0.5 mL 10/30/2020 completed Janeth Aguilar [facility] 01/03/2024 15:39:32 Past Encounters Encounter ID Performer Location Encounter Start Date Encounter Closed Date Diagnosis/Indication Diagnosis SNOMED-CT Code Diagnosis ICD10 Code Diagnosis IMO Codes Diagnosis Note [id number] Stefan Harper DO [facility] ([facility]) [address] [place] [address] 5 04/25/2025 12:51:26 04/30/2025 08:37:42 Alzheimer's disease 23196164 F02.80 G30.9 415519 Atrial flutter 7009017 I 48.92 56318526 Moderate r ecurrent major depression 31807554 F32.A [id number] Stefan Harper [facility] ([facility]) [address] [place] [address] 5 05/02/2025 13:21:29 05/07/2025 12:24:36 Moderate recurrent major depression 79147577 F32.A Alzheimer's disease 2692 9004 F02.80 G30.9 620513 [id number] Stefan Harper DO [facility] ([facility]) [address] [place] [address] 5 05/20/2025 14:21:41 05/22/2025 08:03:07 Alzheimer's disease 26342556 F02.80 G30.9 614285 Atrial flutter 6233980 I 48.92 [id number] [facility] 216149742 F05 3003471 Health Concerns Section Related Observation LastModified by Organization Detai ls LastModified Time None Recorded Concern Status LastModified by Organization Details LastModified Time None Recorded Payers Encounter Date Sequence Insurance Name Policy Number Policy Liu Covered Member ID Liu Member ID Guarantor Name 05/20/2025 1 MEDICARE B-[place]: WPS Isabella Gorman [id number] Isabella Gorman 05/20/2025 2 [employer] - PLAN F (MEDICARE SUPPLEMENT) Isabella Gorman [id number] Isabella Gorman Notes Date Note Type Note Provider Name and Address Organization Details Recorded Time 05/20/2025 text/html DementiaReported by PatientHPIFor quality, patient reportsshort term memory loss,inability to learn or remember new information,disorienta tion to place, anddisorientation to time. For severity, patient reportsmoderate. For duration, patient reports___ years.ROS as noted in the HPI staff reports pt yelling out. Stefan Harper, DO [address] [place] [address], [address], [facility] 05/21/2025 14:51:26 OBGyn Episode No OBEpisode recorded.
[2025-06-28 18:27] VITALS: BP 163/93; PULSE 99; RESP 17; TEMP 36.8; O2SAT 93; BMI 24.3
--- NOTE | 2025-06-28 19:01 | W.ED.URI ---
HPI - URI/Sore Throat General: Chief Complaint: Upper Respiratory Infection Stated Complaint: Sinus symptoms,headache and ear ache dry cough Time Seen by Provider: 06/28/25 18:29 History of Present Illness: Patient is a 80-year-old female with hypertension that presented to the ED due to upper respiratory symptoms. Patient stated on 06/17, she started having upper respiratory congestion, runny nose, frontal sinus tenderness, cough. She was seen in urgent care that day. She was given IM steroid shot, and something else. Over the last 2 days, she has worsening ear pain, on the right, no change in her hearing, ongoing runny nose, rhinorrhea, dry cough, maxillary sinus pain, frontal sinus pain. She has frontal sinus headache. No fevers. Associated symptoms: Reports ear or mastoid pain, nasal congestion and sinus pain; Deny abdominal pain, chills, chest pain, fever(s), nausea or vomiting Related Data Home Medications ?Medication ?Instructions ?Recorded ?Confirmed buzjkbiqgbia-ggiqlfvv-tjazur tablet 1 tab PO DAILY 09/05/19 06/27/25 ondansetron 4 mg disintegrating 4 mg PO Q8H 06/17/25 06/27/25 tablet Previous Rx's ?Medication ?Instructions ?Recorded cetirizine 10 mg capsule (Zyrtec) 10 mg PO DAILY PRN allergy 11/07/23 symptoms #90 caps gabapentin 300 mg capsule See Rx Instructions .Route 06/12/25 .COMPLEX #270 caps lisinopril 20 1 tab PO DAILY 90 days #90 tabs 06/12/25 mg-hydrochlorothiazide 12.5 mg tablet ibuprofen 800 mg tablet 800 mg PO Q8H PRN pain #30 tabs 06/17/25 promethazine-DM 6.25 mg-15 mg/5 mL 5 ml PO Q4H PRN cough #118 mL 06/17/25 oral syrup amoxicillin 875 mg-potassium 1 tab PO Q12H #20 tabs 06/28/25 clavulanate 125 mg tablet methylprednisolone 4 mg tablets in See Rx Instructions PO .COMPLEX 06/28/25 a dose pack (Medrol (Dave)) #21 ea Allergies Allergy/AdvReac Type Severity Reaction Status Date / Time promethazine Allergy Mild ADR-Headach Verified 06/28/25 18:31 e adhesive Allergy ALGY-Rash Verified 06/28/25 18:31 clarithromycin (From Biaxin) Allergy na Verified 06/28/25 18:31 doxycycline Allergy Unknown Verified 06/28/25 18:31 losartan Allergy itching Verified 06/28/25 18:31 metoclopramide (From Reglan) Allergy na Verified 06/28/25 18:31 metoprolol Allergy nausea Verified 06/28/25 18:31 naproxen Allergy NAUSEA Verified 06/28/25 18:31 oxycodone Allergy itching Verified 06/28/25 18:31 and vomiting prednisolone Allergy Unknown Verified 06/28/25 18:31 triamcinolone Allergy ALGY-Bliste Verified 06/28/25 18:31 r walnut Allergy Unknown Verified 06/28/25 18:31 Review of Systems Const: Denies: fever(s) or chills Eyes: Reports: eye discharge ENMT: Reports: dry mouth, ear or mastoid pain, nasal congestion, nasal obstruction and sinus pain; Denies: throat pain, odynophagia, mouth pain or disequilibrium Card: Denies: chest pain, palpitations or irregular heart rhythm Resp: Denies: dyspnea or productive cough GI: Denies: abdominal pain, nausea or vomiting : Denies: difficulty voiding Musc: Reports: extremity pain and limited range of motion; Denies: extremity swelling, joint pain, joint swelling or deformity Skin/Breast: Denies: changes in skin color, dry skin, nail changes or change in hair Neuro: Denies: numbness in extremities or weakness in extremities Psych: Denies: anxiety or depression Skinny/Lymph: Denies: easy bruising or easy bleeding PFS ED PFSH: Medical History (Updated 06/28/25 @ 19:07 by EM Cancino) Irritable colon syndrome Hypercholesteremia GERD (gastroesophageal reflux disease) Brain cancer Multiple fractures of ribs of left side Hypertension e Surgical History History of total hysterectomy History of back surgery History of brain surgery Social History Smoking and tobacco/nicotine status: never used tobacco/nicotine Alcohol intake: never Substance/Drug Use: never Physical Exam Const: COMMON NORMALS: patient oriented x3 HENMT: COMMON NORMALS: normocephalic, atraumatic, hearing grossly normal bilaterally, external ears normal, EAC's normal, TM's normal bilaterally (what is not obscured), moist oral mucous membranes, dentition normal and gingiva normal HEAD & SCALP: normocephalic and atraumatic FACE & SINUS: normal facial exam, face symmetric and sinus tenderness frontal and maxillary NOSE: Nasal discharge present clear EXTERNAL EAR: Yes external ears normal EXTERNAL AUDITORY CANAL: EAC's normal TYMPANIC MEMBRANE: TM's normal bilaterally (what is not obscured) and TM abnormal TM laterality: bilateral obstructed by cerumen (Partially, left greater than right) Neck/C-Spine: COMMON NORMALS: full ROM, no lymphadenopathy and no JVD Chest: COMMONS NORMALS: normal inspection of the chest, normal palpation of entire chest wall, normal inspection of the breasts and normal palpation of the breasts Breast/axilla inspection: Yes normal inspection of the breasts BREAST/AXILLA PALPATION: Yes normal palpation of the breasts Resp: COMMON NORMALS: normal respiratory effort, No retractions, No use of accessory muscles and clear to auscultation bilaterally AUSCULTATION: clear to auscultation bilaterally Cardio: COMMON NORMALS: no JVD, regular rate, regular rhythm, S1 normal heart sound present, S2 normal heart sound present, No gallops present (Cardio), No clicks present (Cardio), No murmurs present (Cardio), No rub (Cardio) and Peripheral pulses 2+ throughout RATE: regular rate RHYTHM: regular rhythm HEART SOUNDS: S1 normal heart sound present and S2 normal heart sound present PERIPHERAL PULSES: Peripheral pulses 2+ throughout : COMMON NORMALS: Yes no CVA tenderness BLADDER/KIDNEY EXAM: Yes no CVA tenderness Back/Pelvis: COMMON NORMALS: no CVA tenderness and thoraco-lumbar ROM normal Extremity: COMMON NORMALS: normal to inspection, full ROM and no pedal edema Neuro: COMMON NORMALS: patient oriented x3 and CN's II-XII intact bilaterally Psych: COMMON NORMALS: mental status grossly normal and Normal thought process present THOUGHT PROCESS: Normal thought process present Course Vital Signs: Vital signs: Vital Signs Temperature 98.3 F 06/28/25 18:27 Pulse Rate 99 06/28/25 18:27 Respiratory Rate 17 06/28/25 18:27 Blood Pressure 163/93 06/28/25 18:27 Pulse Oximetry 93 06/28/25 18:27 Oxygen Delivery Me thod Room Air 06/28/25 18:27 MDM - URI/Sore Throat Medical Decision Making Patient is a 80-year-old female that presents with upper respiratory symptoms, tenderness to frontal and maxillary sinus, rhinorrhea, and obscured TMs. The TM I can see, has good landmarks. I advised her to obtain Debrox for ears that she has a pain in, change her antihistamine to a different antihistamine, and take twice daily, utilize Flonase, and Astepro nasal sprays twice daily. I have also placed her on antibiotic since she does have sinusitis, and this has went on for over a week, and Medrol Dosepak. She received dexamethasone x 1 here. She is to follow-up with primary care. All her questions answered satisfaction. I have also personally educated her on all of this method and given her written instructions Medical Records I reviewed the patient's medical records. No radiology studies performed this visit Discharge Plan Discharge Patient Disposition: Home Clinical Impression: Upper respiratory infection Qualifiers: URI type: unspecified viral URI Qualified Code(s): J06.9 - Acute upper respiratory infection, unspecified Sinusitis Qualifiers: Sinusitis location: frontal Chronicity: acute Recurrence: non-recurrent Qualified Code(s): J01.10 - Acute frontal sinusitis, unspecified Condition: Stable Prescriptions: New amoxicillin-pot clavulanate 875-125 mg tablet 1 tab PO Q12H Qty: 20 0RF methylprednisolone [Medrol (Dave)] 4 mg tablets,dose pack See Rx Instructions .ROUTE .COMPLEX Qty: 21 0RF Rx Instructions: for 6 days No Action szfdkufklyph-bafzvczh-inpcbh Tablet 1 tab PO DAILY Zyrtec 10 mg capsule 10 mg PO DAILY PRN (Reason: allergy symptoms) Qty: 90 1RF ondansetron 4 mg tablet,disintegrating 4 mg PO Q8H ibuprofen 800 mg tablet 800 mg PO Q8H PRN (Reason: pain) Qty: 30 0RF Rx Instructions: take with food promethazine-DM 6.25-15 mg/5 mL syrup 5 ml PO Q4H PRN (Reason: cough) Qty: 118 0RF gabapentin 300 mg capsule See Rx Instructions .ROUTE .COMPLEX Qty: 270 1RF Dose Instruction: TAKE 1 CAPSULE BY MOUTH THREE TIMES DAILY Rx Instructions: TAKE 1 CAPSULE BY MOUTH THREE TIMES DAILY lisinopril-hydrochlorothiazide 20-12.5 mg tablet 1 tab PO DAILY 90 Days Qty: 90 3RF Discharge Orders: Discharge ED (Routine); Ordered 06/28/25 Ordered By: Elaine Martin Discharge Diet: Usual diet Discharge Activity: Resume usual activity Patient Instructions: Upper Respiratory Infection (ED), Patient Portal & Dima Instructions Activity Restrictions/Additional Instructions: - Obtain Debrox for your ears. Follow box instructions - Nasal sprays: Astepro/Astelin. Take 2 sprays in each nose twice daily Flonase/fluticasone. Take 2 sprays in each nose twice daily - Antihistamine: Change her antihistamine. We discussed Xyzal/levocetirizine. Take twice daily while you are having a flare - Drink plenty of fluids - Return to ED with worsening cough, congestion, difficulty breathing - At the pharmacy: Medrol Dosepak. A powerful anti-inflammatory. Follow instructions on the card. Augmentin also called amoxicillin/clavulanic. Use as directed. Make sure you take with food so you do not have GI upset which is a side effect, not an allergy if you forget to eat with this. - Make sure you obtain a probiotic or eat active culture yogurt daily while on an antibiotic. - Call your doctor on Tuesday for follow-up next week. Thank you for choosing [facility] for your healthcare needs today. You have been screened and evaluated and felt safe for discharge. Health conditions do change or evolve sometimes and as such it is important that you follow up with your Primary Doctor to be re checked, 3-5 days is a general good time frame for follow up. You are always welcome to return to the ED for re assessment if your symptoms are worsening or you have new concerns Print Language: Belarusian Coding Level of Care Code ED Beauty Advisor for Yousuf Thomas
[2025-06-28 20:03] LABS: Respiratory Syncytial Virus Ce NEGATIVE (Negative)
[2025-06-28 20:12] LABS: SARS-CoV-2 PCR Positive (Negative)
== END 2025-06-28 19:44 | disposition home or self-care (01) ==
PROVIDERS: Emergency Provider Physician Assistant
DX: J06.9 Acute upper respiratory infection, unspecified (principal); J01.10 Acute frontal sinusitis, unspecified; I10 Essential (primary) hypertension; Z85.841 Personal history of malignant neoplasm of brain
CPT/HCPCS: 87637; 96372; 99284; J1100

== ENCOUNTER 2025-07-17 07:03 | Outpatient (CLI) | payer MEDICARE, SELFPAY ==
--- NOTE | 2025-07-17 07:15 | CT_ITS ---
WS: [id number] CT chest wo con [id number] HISTORY: f/u abnormal CT 12/16: right lower lung nodule TECHNIQUE: Axial imaging performed through the thorax. Coronal and sagittal reformats are submitted. All CT scans at [facility] use at least one of these dose optimization techniques: automated exposure control; mA and/or kV adjustment per patient size (includes targeted exams where dose is matched to clinical indication); or iterative reconstruction. CONTRAST: Omnipaque 350; 100 mL IV. DLP: 239.26 mGy.cm COMPARISON: 01/27/2013, 12/22/2024 Lungs and central airway: Hyperinflated lungs with centrilobular emphysema. Reidentified is a lobulated nodule at the RIGHT lung base abutting the diaphragm. Very tiny central calcification within the nodule. Nodule measures 11 x 9 mm and has not significantly changed in size since 12/22/2024. Nodule is new since 01/27/2013. Mild pleural thickening along the superior RIGHT fissure. No pneumonia. Pleura: Normal. No pleural effusion. Heart and pericardium: Normal size heart with no pericardial effusion. Mediastinum and tosin: No pathologically enlarged lymph nodes identified on this unenhanced exam. There are a few lymph nodes which are difficult to characterize and measure without IV contrast. Vessels: Mild atherosclerosis aorta. No aneurysm. Normal size pulmonary artery. Chest wall and lower neck: Small amount of fluid at the RIGHT shoulder joint and synovial thickening. Upper abdomen: Suprarenal aortic calcifications. No adrenal mass. Small hiatal hernia. Osseous structures: Mild degenerative disc disease. Osteophytes from spondylosis. Healed rib fractures in the posterior LEFT thorax. CT/CT chest wo con [id number] IMPRESSION: 1. No significant increase in size of the lobulated 11 x 9 mm nodule at the RI GHT lung base. Tiny central calcification is present. Nodule is unchanged since 12/22/2024 but new since 01/27/2013. This nodule is large enough that PET/CT is m ost likely beneficial. If PET/CT is not performed recommend chest CT follow-up in 6 to 12 months with IV contrast. 2. Chronic emphysematous changes. 3. No new or additional mass or nodule.
== END 2025-07-17 07:04 | disposition home or self-care (01) ==
LOC: RAD 07:05
PROVIDERS: PCP Family Medicine; Visit Provider Family Medicine
DX: R91.1 Solitary pulmonary nodule (principal); J43.2 Centrilobular emphysema; J92.9 Pleural plaque without asbestos; M25.411 Effusion, right shoulder; E27.49 Other adrenocortical insufficiency; K44.9 Diaphragmatic hernia without obstruction or gangrene; M25.78 Osteophyte, vertebrae
CPT/HCPCS: 71250